=== PATIENT | male | born 1965 | race Caucasian/White ===

== ENCOUNTER 2016-11-02 14:00 | Outpatient (RCR) | payer OTHER, MEDICARE ==
[2016-08-18 14:42] VITALS: BP 124/82
[~2016-11-02 14:00] MED LIST: ABILIFY5 MG PO; ACIDOPHILUS PO; ACIDOPHILUS PRO1 CAP PO; ALBUTEROL SULFAT3 M3 IH; ALEVE220 M1 PO; ALL DAY ALLERGY10 M2 PO; ALPRAZOLAM0.25 MG PO; AMITIZA24 MC1 PO; AMLODIPINE BESYL5 MG PO; AMLOPIDINE PO; AMOXICILLIN 8751 TAB PO; ASPIRIN E.C. 8181 MG PO; ATIVAN 2MG/ML2 MG/ML IV; Ambien PO; BACLOFEN INT; BACTRIM DS TAB1 EACH PO; BELLADONNA/OPIU1 SU1 RC; BISOPROLOL FUMA1 TAB PO; CARDI-OMEGA1000 MG PO; CEPHALEXIN500 M1 PO; CIPRO 250MG TA250 MG PO; CLINDAMYCIN 300MG PO; COLACE 100100 MG/CAP PO; COLACE100 M1 PO; COREG 6.256.25 MG/TA PO; COREG12.5 MG PO; COUMADIN 3MG3 MG/TAB PO; COUMADIN 4MG4 MG/TAB PO; COUMADIN 5MG5 MG/TAB PO; COUMADIN PO; COUMADIN3 MG PO; COUMADIN5 M1 IV; COUMADIN5 MG PO; CYMBALTA60 MG PO; DELTASONE20 M1 PO; DEPAKOTE500 M1 PO; DHA PO; DIAZEPAM5 MG/5 ML PO; DULOXETINE60 MG PO; DURAGESIC50 MCG/PAT TD; ED PERCOCE6 TAB/BOTT PO; FE-TABS325 MG PO; FENTANYL TR25 MCG/HR TD; FERROUS SU325 MG/TAB PO; FERROUS SULFAT325 M1 PO; FLOMAX 0.40.4 MG/CAP PO; FLOMAX PO; FLONASE ALLERG9.9 ML NS; FUROSEMIDE PO; FUROSEMIDE20 MG PO; GABAPENTIN PO; GABAPENTIN100 MG PO; GAVISCON PO; IMITREX100 M1 PO; KEPPRA500 MG PO; KETOROLAC TROME10 MG PO; KLOR-CON 1010 MEQ PO; LASIX20 M1 PO; LEVAQUIN 5500 MG/TA1 PO; LIORESAL I500 MCG/ML IT; LORAZEPAM INT2 MG/ML PO; LORTAB 7.5/5001 TAB PO; METAMUCIL0.52 G1 PO; METAMUCIL3.4 GM/Do1 PO; MIRALAX17 GM PO; MUPIROCIN2% TP; MYLANTA PO; NEXIUM40 MG PO; NIACIN 250250 MG/CAP PO; NIACIN500 M3 PO; NIACIN500 M6 PO; NIACIN500 MG PO; NON FORMULARY PO; NORCO 325 MG-51 TA1 PO; NORCO 325 MG-7.1 TAB PO; NORVASC 5MG5 MG/TAB PO; NYSTATIN 1 ML1 ML; NYSTATIN CREAM15 GM TP; OMEGA-3 FISH1200 MG PO; ONDANSETRON4 M1 PO; PAMELOR75 M1 PO; PEPCID 20MG TAB20 MG PO; PERCOCET 325 MG1 TA2 PO; PERCOCET 325 MG1 TA4 PO; PERCOCET 7.5/321 TA1 PO; PHENERGAN 25 TA25 MG PO; POTASSIUM CHLO10 ME5 PO; PREDNISONE20 M1 PO; PRILOSEC 20MG20 MG PO; PROBIOTIC1 EAC1 PO; PROMETHAZINE HC25 M2 PO; RISPERDAL 1M1 MG/TAB PO; SENOKOT PO; ST. JOSEPH ASPI81 M1 PO; ST. JOSEPH81 M2 PO; TRILEPTAL600 MG PO; VALIUM 5MG T5 MG/TAB PO; VALIUM5 MG/ML REC; VIBRAMYCIN100 MG PO; VIIBRYD40 MG PO; VILAZODONE PO; VIMPAT100 MG PO; VIMPAT50 MG PO; XANAX 0.5MG0.5 MG PO; XANAX0.5 MG PO; ZANAFLEX4 M1 PO; ZANTAC 150MG T150 MG PO; ZIAC 5/6.25MG T1 TAB PO
[2017-01-18] MEDS ORDERED: ZIAC 2.5/6.25MG1 TAB PO (09:10)
[2017-01-18] MEDS ORDERED: VITAMIN D 1001000 IU PO (09:10)
[2017-01-18] MEDS ORDERED: MAGNESIUM400 MG (09:13)
[2017-01-18] MEDS ORDERED: PHENERGAN 25 TA25 MG PO (09:15)
[2017-01-18] MEDS ORDERED: RIBOFLAVIN400 MG PO (09:15)
[2017-01-31] MEDS ORDERED: LEVAQUIN 5500 MG/TA1 PO (07:33)
== END 2017-01-25 | disposition home or self-care (01) ==
LOC: PT
DX: I69.391 Dysphagia following cerebral infarction (principal)

== ENCOUNTER 2017-01-18 08:53 | Emergency (ER) | payer OTHER, MEDICARE ==
[2017-01-18] MEDS ORDERED: ZIAC 2.5/6.25MG1 TAB PO (09:10)
[2017-01-18] MEDS ORDERED: VITAMIN D 1001000 IU PO (09:10)
[2017-01-18] MEDS ORDERED: MAGNESIUM400 MG (09:13)
[2017-01-18] MEDS ORDERED: RIBOFLAVIN400 MG PO (09:15)
[2017-01-18] MEDS ORDERED: PHENERGAN 25 TA25 MG PO (09:15)
[2017-01-31] MEDS ORDERED: LEVAQUIN 5500 MG/TA1 PO (07:33)
== END 2017-01-18 10:38 | disposition home or self-care (01) ==
LOC: ED 08:53
DX: R31.9 Hematuria, unspecified (principal); N41.9 Inflammatory disease of prostate, unspecified; Z79.82 Long term (current) use of aspirin; Z79.01 Long term (current) use of anticoagulants; Z46.6 Encounter for fitting and adjustment of urinary device

== ENCOUNTER 2017-01-31 07:35 | Emergency (ER) | payer OTHER ==
[~2017-01-31 07:35] MED LIST changes: +MAGNESIUM400 MG; +RIBOFLAVIN400 MG PO; +VITAMIN D 1001000 IU PO; +ZIAC 2.5/6.25MG1 TAB PO
== END 2017-01-31 09:20 | disposition home or self-care (01) ==
LOC: ED 07:35
DX: I11.0 Hypertensive heart disease with heart failure (principal); Z95.2 Presence of prosthetic heart valve; Z79.01 Long term (current) use of anticoagulants

== ENCOUNTER 2017-02-12 08:59 | Emergency (ER) | payer MEDICARE, OTHER ==
[2017-02-12] MEDS ORDERED: METOLAZONE5 MG PO (10:08)
[2017-02-12] MEDS ORDERED: COUMADIN 3MG3 MG/TAB (10:11)
[2017-02-12 12:12] VITALS: BP 100/62
== END 2017-02-12 11:55 | disposition home or self-care (01) ==
LOC: ED 08:59
DX: S62.304A Unspecified fracture of fourth metacarpal bone, right hand, initial encounter for closed fracture (principal); S62.306A Unspecified fracture of fifth metacarpal bone, right hand, initial encounter for closed fracture; M81.0 Age-related osteoporosis without current pathological fracture; W19.XXXA Unspecified fall, initial encounter
CPT/HCPCS: J3010

== ENCOUNTER 2017-09-08 14:09 | Emergency (ER) | payer MEDICARE, OTHER ==
[~2017-09-08 14:09] MED LIST changes: -CARDI-OMEGA1000 MG PO; +EQL FISH OIL 11 EAC1 PO; +GABAPENTIN TAB600 MG PO; -GABAPENTIN100 MG PO; -MAGNESIUM400 MG; +MAGNESIUM400 MG PO; +METOLAZONE5 MG PO; +RIBOFLAVIN100 MG PO; -RIBOFLAVIN400 MG PO
[2017-09-08] MEDS ORDERED: OXYCODONE PO (14:43)
[2017-09-08] MEDS ORDERED: COUMADIN 4MG4 MG/TAB PO (14:50)
[2017-09-08 15:12] LABS: EOS # 0.1 (0.04-0.40); EOS % 1.8 % (0.0-4.0); HEMATOCRIT 41.2 % (42.0-52.0); HEMOGLOBIN 13.6 g/dL (13.5-18.0); LYMPH# 1.1 (1.50-4.00); MEAN CELL VOLUME 85 fl (78-100); MEAN CORPUSCULAR HEMOGLOBIN 28 pg (27-31); MEAN CORPUSCULAR HGB CONC 33 g/dL (33-37); MEAN PLATELET VOLUME 9.8 fl (7.4-10.4); MONO # 0.4 (0.20-0.80); NEU # 4.4 (1.40-6.50); PLATELET COUNT 195 K/mm3 (130-400); RED BLOOD COUNT 4.85 M/mm3 (4.20-5.60); RED CELL DISTRIBUTION WIDTH 14.2 % (11.5-14.5); WHITE BLOOD COUNT 6.1 K/mm3 (4.8-10.8)
[2017-09-08 15:20] LABS: ALBUMIN 4.3 g/dL (3.5-5.0); BUN/CREATININE RATIO 13.5 (6.0-26.0); CALCIUM 9.2 mg/dL (8.4-10.2); POTASSIUM 3.9 mmol/L (3.6-5.0); TOTAL BILIRUBIN 0.7 mg/dL (0.2-1.3); TOTAL PROTEIN 7.8 g/dL (6.3-8.2)
[2017-09-08 15:30] LABS: PROTHROMBIN TIME 27.3 SECONDS (9.0-12.0)
[2017-09-08 15:42] LABS: URINE APPEARANCE CLEAR; URINE BILIRUBIN NEGATIVE (NEGATIVE); URINE BLOOD NEGATIVE (NEGATIVE); URINE COLOR YELLOW; URINE GLUCOSE NEGATIVE (NEGATIVE); URINE KETONE NEGATIVE (NEGATIVE); URINE LEUKOCYTE ESTERASE NEGATIVE (NEGATIVE); URINE NITRATE NEGATIVE (NEGATIVE); URINE PROTEIN(semi-quant) NEGATIVE (NEGATIVE); URINE UROBILINOGEN NORMAL (NORMAL); URINE WBC 0-1 /hpf (0-3)
[2017-09-08 17:45] VITALS: BP 112/75
== END 2017-09-08 17:50 | disposition home or self-care (01) ==
LOC: ED 14:09
PROVIDERS: Family Medicine
DX: R10.31 Right lower quadrant pain (principal); I50.9 Heart failure, unspecified; I25.2 Old myocardial infarction; I69.851 Hemiplegia and hemiparesis following other cerebrovascular disease affecting right dominant side; G89.0 Central pain syndrome; K21.9 Gastro-esophageal reflux disease without esophagitis; Z95.2 Presence of prosthetic heart valve; R56.9 Unspecified convulsions; F39 Unspecified mood [affective] disorder; Z87.891 Personal history of nicotine dependence
CPT/HCPCS: A4344; A4354; J0595

== ENCOUNTER 2017-10-08 12:53 | Emergency (ER) | payer MEDICARE, OTHER ==
[~2017-10-08] VITALS: Wt 79.1 kg
[~2017-10-08 12:53] MED LIST changes: +OXYCODONE PO
[2017-10-08 13:49] LABS: URINE APPEARANCE CLEAR; URINE BILIRUBIN NEGATIVE (NEGATIVE); URINE BLOOD NEGATIVE (NEGATIVE); URINE COLOR YELLOW; URINE GLUCOSE NEGATIVE (NEGATIVE); URINE KETONE NEGATIVE (NEGATIVE); URINE LEUKOCYTE ESTERASE NEGATIVE (NEGATIVE); URINE NITRATE NEGATIVE (NEGATIVE); URINE PROTEIN(semi-quant) NEGATIVE (NEGATIVE); URINE UROBILINOGEN NORMAL (NORMAL)
[2017-10-08 14:50] VITALS: BP 122/75
== END 2017-10-08 14:36 | disposition home or self-care (01) ==
LOC: ED 12:53
PROVIDERS: Nurse Practitioner Primary Care
DX: N40.1 Benign prostatic hyperplasia with lower urinary tract symptoms (principal); R33.8 Other retention of urine; I25.2 Old myocardial infarction; I10 Essential (primary) hypertension; Z86.73 Personal history of transient ischemic attack (TIA), and cerebral infarction without residual deficits; G89.29 Other chronic pain; Z97.8 Presence of other specified devices; Z88.8 Allergy status to other drugs, medicaments and biological substances; Z95.2 Presence of prosthetic heart valve; Z79.01 Long term (current) use of anticoagulants; Z79.82 Long term (current) use of aspirin
CPT/HCPCS: A4358

== ENCOUNTER 2017-10-29 07:15 | Emergency (ER) | payer MEDICARE, OTHER ==
[~2017-10-29] VITALS: Wt 53.9 kg
[2017-10-29 08:00] LABS: EOS # 0.2 (0.04-0.40); EOS % 2.4 % (0.0-4.0); HEMATOCRIT 41.8 % (42.0-52.0); HEMOGLOBIN 13.8 g/dL (13.5-18.0); LYMPH# 1.6 (1.50-4.00); MEAN CELL VOLUME 85 fl (78-100); MEAN CORPUSCULAR HEMOGLOBIN 28 pg (27-31); MEAN CORPUSCULAR HGB CONC 33 g/dL (33-37); MEAN PLATELET VOLUME 9.4 fl (7.4-10.4); MONO # 0.7 (0.20-0.80); NEU # 4.9 (1.40-6.50); PLATELET COUNT 229 K/mm3 (130-400); RED BLOOD COUNT 4.94 M/mm3 (4.20-5.60); RED CELL DISTRIBUTION WIDTH 14.3 % (11.5-14.5); WHITE BLOOD COUNT 7.4 K/mm3 (4.8-10.8)
[2017-10-29 08:12] LABS: ALBUMIN 4.3 g/dL (3.5-5.0); BUN/CREATININE RATIO 15.8 (6.0-26.0); CALCIUM 8.8 mg/dL (8.4-10.2); TOTAL BILIRUBIN 0.7 mg/dL (0.2-1.3); TOTAL PROTEIN 7.8 g/dL (6.3-8.2)
[2017-10-29 11:08] LABS: PH-URINE 6.5 (5.0 - 8.0); URINE APPEARANCE CLEAR; URINE BILIRUBIN NEGATIVE (NEGATIVE); URINE BLOOD NEGATIVE (NEGATIVE); URINE COLOR YELLOW; URINE GLUCOSE NEGATIVE (NEGATIVE); URINE KETONE NEGATIVE (NEGATIVE); URINE LEUKOCYTE ESTERASE NEGATIVE (NEGATIVE); URINE NITRATE NEGATIVE (NEGATIVE); URINE PROTEIN(semi-quant) NEGATIVE (NEGATIVE); URINE UROBILINOGEN NORMAL (NORMAL); URINE WBC 0-1 /hpf (0-3)
[2017-10-29] MEDS ORDERED: DILAUDID2 M1 PO (11:23)
[2017-10-29 11:46] VITALS: BP 131/87
== END 2017-10-29 11:40 | disposition home or self-care (01) ==
LOC: ED 07:15
PROVIDERS: Nurse Practitioner Primary Care
DX: I69.951 Hemiplegia and hemiparesis following unspecified cerebrovascular disease affecting right dominant side (principal); G89.29 Other chronic pain; I25.2 Old myocardial infarction; I10 Essential (primary) hypertension; K21.9 Gastro-esophageal reflux disease without esophagitis; Z87.442 Personal history of urinary calculi; Z95.0 Presence of cardiac pacemaker; Z95.2 Presence of prosthetic heart valve; Z97.8 Presence of other specified devices; Z79.01 Long term (current) use of anticoagulants; Z79.82 Long term (current) use of aspirin; Z88.8 Allergy status to other drugs, medicaments and biological substances
CPT/HCPCS: A4354; J1170; J1885; J3010

== ENCOUNTER 2017-12-17 12:55 | Emergency (ER) | payer MEDICARE, OTHER ==
[~2017-12-17] VITALS: Wt 79.3 kg
[~2017-12-17 12:55] MED LIST changes: -COUMADIN 1MG1 MG/TAB PO; -FINASTERIDE5 M1 PO; -LIORESAL I500 MCG/ML; -POTASSIUM CHLO20 ME3 PO
[2017-12-17] MEDS ORDERED: NORCO 325 MG-51 TA1 PO (13:07)
[2017-12-17 13:34] LABS: EOS # 0.2 (0.04-0.40); EOS % 3.9 % (0.0-4.0); HEMATOCRIT 44.5 % (42.0-52.0); HEMOGLOBIN 14.3 g/dL (13.5-18.0); LYMPH# 1.2 (1.50-4.00); MEAN CELL VOLUME 84 fl (78-100); MEAN CORPUSCULAR HEMOGLOBIN 27 pg (27-31); MEAN CORPUSCULAR HGB CONC 32 g/dL (33-37); MEAN PLATELET VOLUME 9.4 fl (7.4-10.4); MONO # 0.6 (0.20-0.80); NEU # 3.3 (1.40-6.50); PLATELET COUNT 261 K/mm3 (130-400); RED BLOOD COUNT 5.32 M/mm3 (4.20-5.60); RED CELL DISTRIBUTION WIDTH 14.4 % (11.5-14.5); WHITE BLOOD COUNT 5.3 K/mm3 (4.8-10.8)
[2017-12-17 13:55] LABS: ALBUMIN 4.1 g/dL (3.5-5.0); BUN/CREATININE RATIO 9.4 (6.0-26.0); CALCIUM 9.1 mg/dL (8.4-10.2); TOTAL BILIRUBIN 0.4 mg/dL (0.2-1.3); TOTAL PROTEIN 7.6 g/dL (6.3-8.2)
[2017-12-17 14:11] LABS: POTASSIUM 2.8 mmol/L (3.6-5.0)
[2017-12-17 14:46] LABS: URINE APPEARANCE CLEAR; URINE BILIRUBIN NEGATIVE (NEGATIVE); URINE BLOOD NEGATIVE (NEGATIVE); URINE COLOR YELLOW; URINE GLUCOSE NEGATIVE (NEGATIVE); URINE KETONE NEGATIVE (NEGATIVE); URINE LEUKOCYTE ESTERASE NEGATIVE (NEGATIVE); URINE NITRATE NEGATIVE (NEGATIVE); URINE PROTEIN(semi-quant) NEGATIVE (NEGATIVE); URINE UROBILINOGEN NORMAL (NORMAL)
[2017-12-17 15:03] LABS: PROTHROMBIN TIME 34.6 SECONDS (9.0-12.0)
[2017-12-17] MEDS ORDERED: PERCOCET 325 MG1 TA2 PO (16:49)
[2017-12-17] MEDS ORDERED: POTASSIUM CHLO20 ME3 PO (16:49)
[2017-12-17 17:57] VITALS: BP 125/82
[2017-12-20] MEDS ORDERED: FINASTERIDE5 M1 PO (19:04)
[2017-12-20] MEDS ORDERED: LIORESAL I500 MCG/ML (19:07)
[2017-12-20] MEDS ORDERED: COUMADIN 1MG1 MG/TAB PO (19:12)
== END 2017-12-17 18:09 | disposition home or self-care (01) ==
LOC: ED 12:55
PROVIDERS: Physician Assistant
DX: E86.0 Dehydration (principal); E87.6 Hypokalemia; G43.909 Migraine, unspecified, not intractable, without status migrainosus; R79.1 Abnormal coagulation profile; Z79.01 Long term (current) use of anticoagulants; Z95.2 Presence of prosthetic heart valve; J45.909 Unspecified asthma, uncomplicated; Z95.0 Presence of cardiac pacemaker; Z87.891 Personal history of nicotine dependence; I51.9 Heart disease, unspecified; Z88.8 Allergy status to other drugs, medicaments and biological substances; Z79.82 Long term (current) use of aspirin; I69.351 Hemiplegia and hemiparesis following cerebral infarction affecting right dominant side
CPT/HCPCS: A4354; J1885; J2405; J3010; J7030

== ENCOUNTER → 2017-12-17 | Outpatient (CLI) | payer MEDICARE, OTHER ==
[~2017-12-17] MED LIST changes: +COUMADIN 1MG1 MG/TAB PO; +COUMADIN 2MG2 MG/TAB PO; +DILAUDID2 M1 PO; +FINASTERIDE5 M1 PO; +LIORESAL I500 MCG/ML; +PAMELOR25 M1 PO; -PAMELOR75 M1 PO; +POTASSIUM CHLO20 ME3 PO
[2017-12-17 17:57] VITALS: BP 125/82
[2017-12-17 20:55] LABS: BUN/CREATININE RATIO 10.1 (6.0-26.0); CALCIUM 8.2 mg/dL (8.4-10.2); POTASSIUM 3.1 mmol/L (3.6-5.0)
== END ==
LOC: LAB 20:30
PROVIDERS: Physician Assistant
DX: E87.6 Hypokalemia (principal)

== ENCOUNTER → 2017-12-20 | Outpatient (CLI) | payer MEDICARE, OTHER ==
[~2017-12-20] VITALS: Ht 165.1 cm; Wt 79.1 kg
[~2017-12-20] MED LIST changes: +COUMADIN 1MG1 MG/TAB PO; +FINASTERIDE5 M1 PO; +LIORESAL I500 MCG/ML; +POTASSIUM CHLO20 ME3 PO
[2017-12-20 18:15] VITALS: BP 125/80
[2017-12-20 19:24] VITALS: BP 113/68
[2017-12-20 20:27] VITALS: BP 104/62
[2017-12-20 21:00] VITALS: BP 113/62
== END | disposition home or self-care (01) ==
LOC: EDSTATUS 11:39 → AMSURD 18:07
DX: E86.0 Dehydration (principal)
CPT/HCPCS: J3475; J7030

== ENCOUNTER 2018-02-07 17:54 | Emergency (ER) | payer MEDICARE, OTHER ==
[~2018-02-07] VITALS: Wt 79.1 kg
[2018-02-07 19:15] LABS: EOS # 0.2 (0.04-0.40); EOS % 3.2 % (0.0-4.0); HEMATOCRIT 40.7 % (42.0-52.0); LYMPH# 1.3 (1.50-4.00); MEAN CELL VOLUME 84 fl (78-100); MEAN CORPUSCULAR HEMOGLOBIN 27 pg (27-31); MEAN CORPUSCULAR HGB CONC 32 g/dL (33-37); MEAN PLATELET VOLUME 9.6 fl (7.4-10.4); MONO # 0.5 (0.20-0.80); NEU # 3.6 (1.40-6.50); PLATELET COUNT 250 K/mm3 (130-400); RED BLOOD COUNT 4.84 M/mm3 (4.20-5.60); WHITE BLOOD COUNT 5.6 K/mm3 (4.8-10.8)
[2018-02-07 19:31] LABS: ALBUMIN 3.8 g/dL (3.5-5.0); CALCIUM 8.8 mg/dL (8.4-10.2); POTASSIUM 3.4 mmol/L (3.6-5.0); TOTAL BILIRUBIN 0.5 mg/dL (0.2-1.3); TOTAL PROTEIN 7.1 g/dL (6.3-8.2)
[2018-02-07 22:45] VITALS: BP 116/65
== END 2018-02-07 22:45 | disposition home or self-care (01) ==
LOC: ED 17:54
PROVIDERS: Nurse Practitioner Family
DX: G43.009 Migraine without aura, not intractable, without status migrainosus (principal); E86.0 Dehydration; G44.89 Other headache syndrome; E87.6 Hypokalemia; I10 Essential (primary) hypertension; R56.9 Unspecified convulsions; I69.361 Other paralytic syndrome following cerebral infarction affecting right dominant side; I69.398 Other sequelae of cerebral infarction; Z87.891 Personal history of nicotine dependence; Z95.0 Presence of cardiac pacemaker; Z95.2 Presence of prosthetic heart valve; Z97.8 Presence of other specified devices; Z79.01 Long term (current) use of anticoagulants; Z79.82 Long term (current) use of aspirin
CPT/HCPCS: J1200; J1885; J2300; J2405; J2550; J7030

== ENCOUNTER → 2018-06-27 | Outpatient (CLI) | payer MEDICARE, OTHER | LOC: LAB 09:31 | DX: R39.14 Feeling of incomplete bladder emptying (principal) ==

== ENCOUNTER 2018-07-31 14:40 | Emergency (ER) | payer MEDICARE, OTHER ==
[~2018-07-31] VITALS: Wt 78.8 kg
[2018-07-31] MEDS ORDERED: FIORINAL 50-321 EACH PO (15:13)
[2018-07-31] MEDS ORDERED: TOPAMAX25 MG PO (15:14)
[2018-07-31 16:20] LABS: EOS # 0.1 (0.04-0.40); EOS % 2.5 % (0.0-4.0); HEMATOCRIT 35.4 % (42.0-52.0); HEMOGLOBIN 11.5 g/dL (13.5-18.0); MEAN CELL VOLUME 82 fl (78-100); MEAN CORPUSCULAR HEMOGLOBIN 27 pg (27-31); MEAN CORPUSCULAR HGB CONC 33 g/dL (33-37); MONO # 0.4 (0.20-0.80); NEU # 3.7 (1.40-6.50); PLATELET COUNT 208 K/mm3 (130-400); RED BLOOD COUNT 4.33 M/mm3 (4.20-5.60); RED CELL DISTRIBUTION WIDTH 15.1 % (11.5-14.5); WHITE BLOOD COUNT 5.3 K/mm3 (4.8-10.8)
[2018-07-31 16:31] LABS: ALBUMIN 4.1 g/dL (3.5-5.0); CALCIUM 8.7 mg/dL (8.4-10.2); POTASSIUM 3.4 mmol/L (3.6-5.0); TOTAL BILIRUBIN 0.5 mg/dL (0.2-1.3); TOTAL PROTEIN 6.9 g/dL (6.3-8.2)
[2018-07-31 16:41] LABS: PH-URINE 5.5 (5.0 - 8.0); URINE APPEARANCE CLEAR; URINE BILIRUBIN NEGATIVE (NEGATIVE); URINE BLOOD NEGATIVE (NEGATIVE); URINE COLOR YELLOW; URINE GLUCOSE NEGATIVE (NEGATIVE); URINE KETONE NEGATIVE (NEGATIVE); URINE LEUKOCYTE ESTERASE NEGATIVE (NEGATIVE); URINE NITRATE NEGATIVE (NEGATIVE); URINE PROTEIN(semi-quant) NEGATIVE (NEGATIVE); URINE UROBILINOGEN NORMAL (NORMAL); URINE WBC 0-1 /hpf (0-3)
[2018-07-31 17:38] LABS: PROTHROMBIN TIME 20.7 SECONDS (9.0-12.0)
[2018-07-31 18:11] VITALS: BP 126/73
== END 2018-07-31 18:10 | disposition home or self-care (01) ==
LOC: ED 14:40
PROVIDERS: Nurse Practitioner Primary Care
DX: R55 Syncope and collapse (principal); T67.9XXA Effect of heat and light, unspecified, initial encounter; R51 Headache; G40.409 Other generalized epilepsy and epileptic syndromes, not intractable, without status epilepticus; I25.2 Old myocardial infarction; I10 Essential (primary) hypertension; Z95.0 Presence of cardiac pacemaker; Z95.5 Presence of coronary angioplasty implant and graft; Z79.82 Long term (current) use of aspirin; Z79.01 Long term (current) use of anticoagulants; Z79.899 Other long term (current) drug therapy; Z95.2 Presence of prosthetic heart valve; G81.91 Hemiplegia, unspecified affecting right dominant side; Z86.73 Personal history of transient ischemic attack (TIA), and cerebral infarction without residual deficits
CPT/HCPCS: J3010; J7040

== ENCOUNTER 2018-08-16 13:49 | Emergency (ER) | payer MEDICARE, OTHER ==
[~2018-08-16] VITALS: Wt 76.4 kg
[~2018-08-16 13:49] MED LIST changes: +FIORINAL 50-321 EACH PO; +TOPAMAX25 MG PO
[2018-08-16] MEDS ORDERED: ASTELIN137 MCG/AC NAS (14:33)
[2018-08-16] MEDS ORDERED: ACETAMINOPHEN-H1 TA2 PO (14:36)
[2018-08-16 14:40] LABS: EOS # 0.1 (0.04-0.40); HEMATOCRIT 39.3 % (42.0-52.0); HEMOGLOBIN 12.7 g/dL (13.5-18.0); MEAN CELL VOLUME 83 fl (78-100); MEAN CORPUSCULAR HEMOGLOBIN 27 pg (27-31); MEAN CORPUSCULAR HGB CONC 32 g/dL (33-37); MEAN PLATELET VOLUME 10.2 fl (7.4-10.4); MONO # 0.4 (0.20-0.80); PLATELET COUNT 228 K/mm3 (130-400); RED BLOOD COUNT 4.75 M/mm3 (4.20-5.60); RED CELL DISTRIBUTION WIDTH 15.2 % (11.5-14.5); WHITE BLOOD COUNT 5.5 K/mm3 (4.8-10.8)
[2018-08-16 14:48] LABS: ALBUMIN 4.3 g/dL (3.5-5.0); CALCIUM 8.7 mg/dL (8.4-10.2); POTASSIUM 3.8 mmol/L (3.6-5.0); TOTAL BILIRUBIN 0.5 mg/dL (0.2-1.3); TOTAL PROTEIN 7.4 g/dL (6.3-8.2)
[2018-08-16 15:10] LABS: PH-URINE 6.5 (5.0 - 8.0); URINE APPEARANCE CLOUDY; URINE BILIRUBIN NEGATIVE (NEGATIVE); URINE BLOOD NEGATIVE (NEGATIVE); URINE COLOR YELLOW; URINE GLUCOSE NEGATIVE (NEGATIVE); URINE KETONE NEGATIVE (NEGATIVE); URINE LEUKOCYTE ESTERASE NEGATIVE (NEGATIVE); URINE NITRATE NEGATIVE (NEGATIVE); URINE PROTEIN(semi-quant) TRACE mg/dL (NEGATIVE); URINE UROBILINOGEN NORMAL (NORMAL); URINE WBC 0-1 /hpf (0-3)
[2018-08-16] MEDS ORDERED: NIACIN500 M6 PO (15:39)
[2018-08-16] MEDS ORDERED: POTASSIUM CHLO480 ML PO (15:40)
[2018-08-16] MEDS ORDERED: TOPAMAX25 MG PO (15:42)
[2018-08-16 16:09] VITALS: BP 118/75
== END 2018-08-16 16:48 | disposition short-term general hospital (02) ==
LOC: ED 13:49
PROVIDERS: Nurse Practitioner Primary Care
DX: I63.89 Other cerebral infarction (principal); G46.0 Middle cerebral artery syndrome; R55 Syncope and collapse; I10 Essential (primary) hypertension; F99 Mental disorder, not otherwise specified; G43.909 Migraine, unspecified, not intractable, without status migrainosus; F41.8 Other specified anxiety disorders; Z79.01 Long term (current) use of anticoagulants
CPT/HCPCS: J1200; J2405; J3010

== ENCOUNTER 2018-08-23 13:47 | Inpatient (IN) | payer MEDICARE, OTHER ==
[~2018-08-23] VITALS: Ht 165.1 cm; Wt 75.2 kg
[~2018-08-23 13:47] MED LIST changes: +ACETAMINOPHEN-H1 TA2 PO; +ASTELIN137 MCG/AC NAS; +POTASSIUM CHLO480 ML PO
[2018-08-23] MEDS ORDERED: RIFAMPIN 3300 MG/CAP PO (19:41)
[2018-08-23] MEDS ORDERED: GENTAMICIN I40 MG/ML IV (19:43)
[2018-08-23] MEDS ORDERED: VANCOMYCIN1 GM/1001 IV (19:45)
[2018-08-23] MEDS ORDERED: MAGNESIUM400 MG PO (19:49)
[2018-08-23 20:23] VITALS: BP 160/84
[2018-08-24 06:14] VITALS: BP 164/68
[2018-08-24 07:16] VITALS: BP 164/68
[2018-08-24 18:46] VITALS: BP 181/106
[2018-08-25 06:03] VITALS: BP 151/74
[2018-08-25 08:37] LABS: BASO # 0.1 (0.02-0.10); EOS # 0.3 (0.04-0.40); HEMATOCRIT 38.4 % (42.0-52.0); HEMOGLOBIN 12.4 g/dL (13.5-18.0); LYMPH# 1.6 (1.50-4.00); MEAN CELL VOLUME 83 fl (78-100); MEAN CORPUSCULAR HEMOGLOBIN 27 pg (27-31); MEAN CORPUSCULAR HGB CONC 32 g/dL (33-37); MEAN PLATELET VOLUME 10.2 fl (7.4-10.4); MONO # 0.7 (0.20-0.80); NEU # 3.3 (1.40-6.50); PLATELET COUNT 258 K/mm3 (130-400); RED BLOOD COUNT 4.65 M/mm3 (4.20-5.60); RED CELL DISTRIBUTION WIDTH 15.3 % (11.5-14.5)
[2018-08-25 08:41] LABS: PROTHROMBIN TIME 26.4 SECONDS (9.0-12.0)
[2018-08-25 08:56] LABS: EOS % 5.4 % (0.0-4.0)
[2018-08-25 09:04] LABS: ALBUMIN 4.5 g/dL (3.5-5.0); POTASSIUM 3.3 mmol/L (3.6-5.0)
[2018-08-25 09:14] LABS: CALCIUM 9.2 mg/dL (8.4-10.2); TOTAL PROTEIN 7.8 g/dL (6.3-8.2)
[2018-08-25 18:46] VITALS: BP 160/64
[2018-08-26 06:18] VITALS: BP 121/66
[2018-08-26 18:41] VITALS: BP 158/90
[2018-08-27 06:27] VITALS: BP 142/68
[2018-08-27 08:31] LABS: CALCIUM 9.2 mg/dL (8.4-10.2)
[2018-08-27 18:01] VITALS: BP 169/100
[2018-08-28 06:24] VITALS: BP 105/62
[2018-08-28 18:26] VITALS: BP 127/83
[2018-08-29 06:40] VITALS: BP 118/75
[2018-08-29 18:31] VITALS: BP 130/74
[2018-08-30 06:15] VITALS: BP 111/66
[2018-08-30 07:14] LABS: PROTHROMBIN TIME 10.6 SECONDS (9.0-12.0)
[2018-08-30 07:28] LABS: CALCIUM 8.7 mg/dL (8.4-10.2); POTASSIUM 3.2 mmol/L (3.6-5.0)
[2018-08-30 18:52] VITALS: BP 122/74; BP 22/74
[2018-08-31 06:30] VITALS: BP 100/68
[2018-08-31 08:30] VITALS: BP 113/64
[2018-08-31 18:42] VITALS: BP 125/81
[2018-09-01 06:26] VITALS: BP 104/54
[2018-09-01 08:57] VITALS: BP 151/55
[2018-09-01 18:34] VITALS: BP 128/73
[2018-09-02 06:21] VITALS: BP 106/62
[2018-09-02 06:47] LABS: EOS # 0.2 (0.04-0.40); EOS % 3.8 % (0.0-4.0); HEMATOCRIT 33.3 % (42.0-52.0); HEMOGLOBIN 10.4 g/dL (13.5-18.0); LYMPH# 1.4 (1.50-4.00); MEAN CELL VOLUME 83 fl (78-100); MEAN CORPUSCULAR HEMOGLOBIN 26 pg (27-31); MEAN CORPUSCULAR HGB CONC 31 g/dL (33-37); MEAN PLATELET VOLUME 9.4 fl (7.4-10.4); MONO # 0.6 (0.20-0.80); NEU # 3.6 (1.40-6.50); PLATELET COUNT 244 K/mm3 (130-400); RED CELL DISTRIBUTION WIDTH 14.9 % (11.5-14.5); WHITE BLOOD COUNT 5.9 K/mm3 (4.8-10.8)
[2018-09-02 07:30] LABS: ALBUMIN 3.5 g/dL (3.5-5.0); CALCIUM 8.4 mg/dL (8.4-10.2); POTASSIUM 3.5 mmol/L (3.6-5.0); TOTAL BILIRUBIN 0.6 mg/dL (0.2-1.3); TOTAL PROTEIN 6.3 g/dL (6.3-8.2)
[2018-09-02 07:33] LABS: PROTHROMBIN TIME 10.3 SECONDS (9.0-12.0)
[2018-09-02 18:35] VITALS: BP 124/69
[2018-09-03 06:20] VITALS: BP 109/53
[2018-09-03] MEDS ORDERED: ENOXAPARIN80 MG/0.1 SQ (09:30)
[2018-09-03] MEDS ORDERED: COUMADIN 22.5 MG/TAB PO (09:31)
[2018-09-03] MEDS ORDERED: EFFER-K20 MEQ PO (09:32)
== END 2018-09-03 11:21 | disposition home health service (06) | DRG 289 ==
LOC: MED/SURG 13:47
PROVIDERS: Family Medicine; Internal Medicine; ADMIT Nurse Practitioner Family
DX: I33.9 Acute and subacute endocarditis, unspecified (principal); I69.951 Hemiplegia and hemiparesis following unspecified cerebrovascular disease affecting right dominant side; Z87.891 Personal history of nicotine dependence; Z95.2 Presence of prosthetic heart valve; I69.320 Aphasia following cerebral infarction; K21.9 Gastro-esophageal reflux disease without esophagitis; N18.9 Chronic kidney disease, unspecified; E78.5 Hyperlipidemia, unspecified; I48.2 Chronic atrial fibrillation; Z95.0 Presence of cardiac pacemaker
CPT/HCPCS: J1580; J1644; J1650; J3370; J7050

== ENCOUNTER → 2018-09-04 | Outpatient (CLI) | payer MEDICARE, OTHER ==
[2018-09-03 06:20] VITALS: BP 109/53
[~2018-09-04] MED LIST changes: +COUMADIN 22.5 MG/TAB PO; +EFFER-K20 MEQ PO; +ENOXAPARIN80 MG/0.1 SQ; +GENTAMICIN I40 MG/ML IV; +RIFAMPIN 3300 MG/CAP PO; +VANCOMYCIN1 GM/1001 IV
[2018-09-04 22:08] LABS: PROTHROMBIN TIME 13.1 SECONDS (9.0-12.0)
[2018-09-04 22:30] LABS: CALCIUM 9.6 mg/dL (8.4-10.2); POTASSIUM 4.3 mmol/L (3.6-5.0); TOTAL BILIRUBIN 0.6 mg/dL (0.2-1.3); TOTAL PROTEIN 6.7 g/dL (6.3-8.2)
== END ==
LOC: LAB 14:48
PROVIDERS: Family Medicine
DX: T82.6XXA Infection and inflammatory reaction due to cardiac valve prosthesis, initial encounter (principal); Z95.2 Presence of prosthetic heart valve; Z79.01 Long term (current) use of anticoagulants

== ENCOUNTER 2018-10-13 16:41 | Emergency (ER) | payer MEDICARE, OTHER ==
[~2018-10-13] VITALS: Wt 79.0 kg
[2018-10-13] MEDS ORDERED: COUMADIN 6MG6 MG/TAB PO (16:58)
[2018-10-13] MEDS ORDERED: POTASSIUM CHLO480 ML PO (16:59)
[2018-10-13 17:51] LABS: EOS # 0.1 (0.04-0.40); EOS % 2.5 % (0.0-4.0); HEMATOCRIT 32.2 % (42.0-52.0); HEMOGLOBIN 10.4 g/dL (13.5-18.0); LYMPH# 0.9 (1.50-4.00); MEAN CELL VOLUME 81 fl (78-100); MEAN CORPUSCULAR HEMOGLOBIN 26 pg (27-31); MEAN CORPUSCULAR HGB CONC 32 g/dL (33-37); MONO # 0.4 (0.20-0.80); NEU # 3.8 (1.40-6.50); PLATELET COUNT 205 K/mm3 (130-400); RED BLOOD COUNT 3.97 M/mm3 (4.20-5.60); RED CELL DISTRIBUTION WIDTH 14.7 % (11.5-14.5); WHITE BLOOD COUNT 5.3 K/mm3 (4.8-10.8)
[2018-10-13 18:03] LABS: CALCIUM 9.1 mg/dL (8.4-10.2); POTASSIUM 3.5 mmol/L (3.6-5.0)
[2018-10-13 18:09] LABS: PROTHROMBIN TIME 14.3 SECONDS (9.0-12.0)
[2018-10-13 21:50] VITALS: BP 127/49
== END 2018-10-13 21:50 | disposition home or self-care (01) ==
LOC: ED 16:41
PROVIDERS: Family Medicine
DX: R41.82 Altered mental status, unspecified (principal); S00.83XA Contusion of other part of head, initial encounter; W19.XXXA Unspecified fall, initial encounter; Y92.009 Unspecified place in unspecified non-institutional (private) residence as the place of occurrence of the external cause; Z79.01 Long term (current) use of anticoagulants; Z95.2 Presence of prosthetic heart valve; G40.909 Epilepsy, unspecified, not intractable, without status epilepticus; F44.5 Conversion disorder with seizures or convulsions; Z86.79 Personal history of other diseases of the circulatory system; I69.951 Hemiplegia and hemiparesis following unspecified cerebrovascular disease affecting right dominant side; R40.2412 Glasgow coma scale score 13-15, at arrival to emergency department; Z79.899 Other long term (current) drug therapy; Z79.82 Long term (current) use of aspirin

== ENCOUNTER 2019-04-16 17:57 | Emergency (ER) | payer MEDICARE, OTHER ==
[~2019-04-16] VITALS: Wt 74.0 kg
[~2019-04-16 17:57] MED LIST changes: +COUMADIN 6MG6 MG/TAB PO; -FLOMAX PO; +FLOMAX0.4 MG PO
[2019-04-16 19:08] LABS: EOS # 0.2 (0.04-0.40); EOS % 2.2 % (0.0-4.0); HEMATOCRIT 40.6 % (42.0-52.0); HEMOGLOBIN 12.8 g/dL (13.5-18.0); LYMPH# 1.6 (1.50-4.00); MEAN CELL VOLUME 80 fl (78-100); MEAN CORPUSCULAR HEMOGLOBIN 25 pg (27-31); MEAN CORPUSCULAR HGB CONC 32 g/dL (33-37); MEAN PLATELET VOLUME 9.9 fl (7.4-10.4); MONO # 0.6 (0.20-0.80); NEU # 6.2 (1.40-6.50); PLATELET COUNT 204 K/mm3 (130-400); RED BLOOD COUNT 5.09 M/mm3 (4.20-5.60); RED CELL DISTRIBUTION WIDTH 15.8 % (11.5-14.5); WHITE BLOOD COUNT 8.7 K/mm3 (4.8-10.8)
[2019-04-16 19:13] LABS: ALBUMIN 4.1 g/dL (3.5-5.0); POTASSIUM 3.5 mmol/L (3.5-5.1)
[2019-04-16 19:14] LABS: CALCIUM 9.5 mg/dL (8.3-10.5)
[2019-04-16 19:16] LABS: TOTAL PROTEIN 7.9 g/dL (6.4-8.3)
[2019-04-16 19:17] LABS: TOTAL BILIRUBIN 0.3 mg/dL (0.2-1.2)
[2019-04-16 19:24] LABS: PARTIAL THROMBOPLASTIN TIME 40.4 SECONDS (21.0-32.0); PROTHROMBIN TIME 28.4 SECONDS (9.0-12.0)
[2019-04-16 19:53] LABS: URINE APPEARANCE HAZY; URINE BILIRUBIN NEGATIVE (NEGATIVE); URINE BLOOD NEGATIVE (NEGATIVE); URINE COLOR YELLOW; URINE GLUCOSE NEGATIVE (NEGATIVE); URINE KETONE NEGATIVE (NEGATIVE); URINE LEUKOCYTE ESTERASE NEGATIVE (NEGATIVE); URINE NITRATE NEGATIVE (NEGATIVE); URINE PROTEIN(semi-quant) NEGATIVE (NEGATIVE); URINE UROBILINOGEN NORMAL (NORMAL); URINE WBC 0-1 /hpf (0-3)
[2019-04-16 20:01] LABS: CKMB ISOENZYME 2.9 ng/mL (0.0-3.5)
[2019-04-16] MEDS ORDERED: WARFARIN SODIU2.5 MG PO (20:37)
[2019-04-16 21:38] VITALS: BP 136/75
== END 2019-04-16 21:38 | disposition short-term general hospital (02) ==
LOC: ED 17:57
PROVIDERS: Physician Assistant
DX: R41.82 Altered mental status, unspecified (principal); R56.9 Unspecified convulsions; I63.9 Cerebral infarction, unspecified; N19 Unspecified kidney failure; I11.0 Hypertensive heart disease with heart failure; I50.9 Heart failure, unspecified; Z95.0 Presence of cardiac pacemaker; Z95.2 Presence of prosthetic heart valve; Z79.01 Long term (current) use of anticoagulants; Z86.79 Personal history of other diseases of the circulatory system; Z79.82 Long term (current) use of aspirin
CPT/HCPCS: J3010; J7030

== ENCOUNTER 2019-07-07 19:50 | Emergency (ER) | payer MEDICARE, OTHER ==
[~2019-07-07 19:50] MED LIST changes: +KEPPRA 500MG500 MG PO; +WARFARIN SODIU2.5 MG PO; +WARFARIN SODIUM5 MG PO
[2019-07-07] MEDS ORDERED: PHARMASSURE MA500 MG PO (20:03)
[2019-07-07] MEDS ORDERED: EMGALITY120 MG/1 M SQ (20:04)
[2019-07-07 20:31] LABS: EOS # 0.2 (0.04-0.40); EOS % 3.1 % (0.0-4.0); HEMATOCRIT 37.7 % (42.0-52.0); HEMOGLOBIN 11.8 g/dL (13.5-18.0); LYMPH# 1.4 (1.50-4.00); MEAN CELL VOLUME 80 fl (78-100); MEAN CORPUSCULAR HEMOGLOBIN 25 pg (27-31); MEAN CORPUSCULAR HGB CONC 31 g/dL (33-37); MEAN PLATELET VOLUME 9.9 fl (7.4-10.4); MONO # 0.5 (0.20-0.80); NEU # 3.1 (1.40-6.50); PLATELET COUNT 212 K/mm3 (130-400); RED BLOOD COUNT 4.72 M/mm3 (4.20-5.60); RED CELL DISTRIBUTION WIDTH 15.7 % (11.5-14.5); WHITE BLOOD COUNT 5.2 K/mm3 (4.8-10.8)
[2019-07-07 20:41] LABS: ALBUMIN 4.3 g/dL (3.5-5.0); POTASSIUM 3.5 mmol/L (3.5-5.1)
[2019-07-07 20:43] LABS: TOTAL PROTEIN 7.5 g/dL (6.4-8.3)
[2019-07-07 20:45] LABS: TOTAL BILIRUBIN 0.3 mg/dL (0.2-1.2)
[2019-07-08 00:25] LABS: URINE APPEARANCE HAZY; URINE BILIRUBIN NEGATIVE (NEGATIVE); URINE BLOOD NEGATIVE (NEGATIVE); URINE COLOR YELLOW; URINE GLUCOSE NEGATIVE (NEGATIVE); URINE KETONE NEGATIVE (NEGATIVE); URINE LEUKOCYTE ESTERASE NEGATIVE (NEGATIVE); URINE NITRATE NEGATIVE (NEGATIVE); URINE PROTEIN(semi-quant) NEGATIVE (NEGATIVE); URINE UROBILINOGEN NORMAL (NORMAL); URINE WBC 0-1 /hpf (0-3)
[2019-07-08 00:26] LABS: URINE MUCUS PRESENT (NOT PRESENT)
[2019-07-08 00:40] VITALS: BP 131/85
== END 2019-07-08 00:48 | disposition home or self-care (01) ==
LOC: ED 19:50
PROVIDERS: Nurse Practitioner
DX: R11.2 Nausea with vomiting, unspecified (principal); R19.7 Diarrhea, unspecified; R10.9 Unspecified abdominal pain; I11.0 Hypertensive heart disease with heart failure; I50.9 Heart failure, unspecified; I25.2 Old myocardial infarction; K21.9 Gastro-esophageal reflux disease without esophagitis; F41.9 Anxiety disorder, unspecified; F32.9 Major depressive disorder, single episode, unspecified; Z86.73 Personal history of transient ischemic attack (TIA), and cerebral infarction without residual deficits; Z95.2 Presence of prosthetic heart valve; Z95.0 Presence of cardiac pacemaker; Z87.891 Personal history of nicotine dependence; Z79.82 Long term (current) use of aspirin; Z79.01 Long term (current) use of anticoagulants
CPT/HCPCS: J2270; J2550; J7030

== ENCOUNTER 2019-08-06 19:40 | Observation (INO) | payer MEDICARE, OTHER ==
[~2019-08-06] VITALS: Ht 165.1 cm; Wt 69.7 kg
[~2019-08-06 19:40] MED LIST changes: +EMGALITY120 MG/1 M SQ; +PHARMASSURE MA500 MG PO
[2019-08-06 20:55] LABS: EOS # 0.2 (0.04-0.40); EOS % 2.2 % (0.0-4.0); HEMATOCRIT 37.5 % (42.0-52.0); HEMOGLOBIN 11.7 g/dL (13.5-18.0); LYMPH# 1.6 (1.50-4.00); MEAN CELL VOLUME 78 fl (78-100); MEAN CORPUSCULAR HEMOGLOBIN 24 pg (27-31); MEAN CORPUSCULAR HGB CONC 31 g/dL (33-37); MEAN PLATELET VOLUME 10.1 fl (7.4-10.4); MONO # 0.6 (0.20-0.80); NEU # 4.4 (1.40-6.50); PLATELET COUNT 232 K/mm3 (130-400); RED BLOOD COUNT 4.79 M/mm3 (4.20-5.60); RED CELL DISTRIBUTION WIDTH 15.5 % (11.5-14.5); WHITE BLOOD COUNT 6.8 K/mm3 (4.8-10.8)
[2019-08-06 21:05] LABS: PROTHROMBIN TIME 23.9 SECONDS (9.0-12.0)
[2019-08-06 21:14] LABS: ALBUMIN 4.2 g/dL (3.5-5.0)
[2019-08-06 21:15] LABS: CALCIUM 9.1 mg/dL (8.3-10.5)
[2019-08-06 21:16] LABS: TOTAL PROTEIN 7.4 g/dL (6.4-8.3)
[2019-08-06 21:18] LABS: TOTAL BILIRUBIN 0.3 mg/dL (0.2-1.2)
[2019-08-06 21:34] LABS: PH-URINE 6.5 (5.0 - 8.0); URINE APPEARANCE HAZY; URINE BILIRUBIN NEGATIVE (NEGATIVE); URINE BLOOD TRACE (NEGATIVE); URINE COLOR YELLOW; URINE GLUCOSE NEGATIVE (NEGATIVE); URINE KETONE NEGATIVE (NEGATIVE); URINE LEUKOCYTE ESTERASE NEGATIVE (NEGATIVE); URINE NITRATE NEGATIVE (NEGATIVE); URINE PROTEIN(semi-quant) NEGATIVE (NEGATIVE); URINE UROBILINOGEN NORMAL (NORMAL); URINE WBC 0-1 /hpf (0-3)
[2019-08-06] MEDS ORDERED: BISOPROLOL FUMA1 TAB PO (23:40)
[2019-08-06] MEDS ORDERED: MAGNESIUM400 MG PO (23:44)
[2019-08-07] VITALS (7 sets, daily range): BP systolic 102–128; BP diastolic 50–74
[2019-08-07 10:00] LABS: POTASSIUM 3.5 mmol/L (3.5-5.1)
[2019-08-07 10:01] LABS: CALCIUM 8.1 mg/dL (8.3-10.5)
[2019-08-07 16:44] LABS: POTASSIUM 3.7 mmol/L (3.5-5.1)
== END 2019-08-07 18:39 | disposition home or self-care (01) ==
LOC: ED 19:40 → MED/SURG 23:21
PROVIDERS: Nurse Practitioner Family; ADMIT Physician Assistant
DX: R55 Syncope and collapse (principal); E86.0 Dehydration; E87.6 Hypokalemia; I69.951 Hemiplegia and hemiparesis following unspecified cerebrovascular disease affecting right dominant side; N28.9 Disorder of kidney and ureter, unspecified; I38 Endocarditis, valve unspecified; Z95.2 Presence of prosthetic heart valve; Z79.01 Long term (current) use of anticoagulants; Z95.0 Presence of cardiac pacemaker; Z97.8 Presence of other specified devices; I50.9 Heart failure, unspecified; Z23 Encounter for immunization; Z86.69 Personal history of other diseases of the nervous system and sense organs; Z79.899 Other long term (current) drug therapy
CPT/HCPCS: G0378; J3480

== ENCOUNTER → 2019-08-11 | Outpatient (CLI) | payer MEDICARE, OTHER ==
[2019-08-07 18:23] VITALS: BP 109/62
[2019-08-11 13:28] LABS: POTASSIUM 3.6 mmol/L (3.5-5.1)
[2019-08-11 13:29] LABS: CALCIUM 8.7 mg/dL (8.3-10.5)
== END ==
LOC: LAB 12:58
PROVIDERS: Nurse Practitioner Family
DX: N28.9 Disorder of kidney and ureter, unspecified (principal); E87.6 Hypokalemia

== ENCOUNTER 2019-08-15 19:47 | Observation (INO) | payer MEDICARE, OTHER ==
[~2019-08-15] VITALS: Ht 165.1 cm; Wt 76.3 kg
[2019-08-15 20:33] LABS: EOS # 0.2 (0.04-0.40); HEMATOCRIT 35.7 % (42.0-52.0); HEMOGLOBIN 11.2 g/dL (13.5-18.0); LYMPH# 1.5 (1.50-4.00); MEAN CELL VOLUME 80 fl (78-100); MEAN CORPUSCULAR HEMOGLOBIN 25 pg (27-31); MEAN CORPUSCULAR HGB CONC 31 g/dL (33-37); MEAN PLATELET VOLUME 9.7 fl (7.4-10.4); MONO # 0.4 (0.20-0.80); NEU # 3.2 (1.40-6.50); PLATELET COUNT 233 K/mm3 (130-400); RED BLOOD COUNT 4.49 M/mm3 (4.20-5.60); RED CELL DISTRIBUTION WIDTH 16.8 % (11.5-14.5); WHITE BLOOD COUNT 5.3 K/mm3 (4.8-10.8)
[2019-08-15 20:41] LABS: ALBUMIN 4.3 g/dL (3.5-5.0); POTASSIUM 3.6 mmol/L (3.5-5.1)
[2019-08-15 20:42] LABS: CALCIUM 9.2 mg/dL (8.3-10.5)
[2019-08-15 20:44] LABS: TOTAL PROTEIN 7.7 g/dL (6.4-8.3)
[2019-08-15 20:45] LABS: TOTAL BILIRUBIN 0.2 mg/dL (0.2-1.2)
[2019-08-15 22:11] LABS: URINE APPEARANCE HAZY; URINE COLOR YELLOW
[2019-08-15 22:12] LABS: URINE BILIRUBIN NEGATIVE (NEGATIVE); URINE BLOOD NEGATIVE (NEGATIVE); URINE GLUCOSE NEGATIVE (NEGATIVE); URINE KETONE NEGATIVE (NEGATIVE); URINE LEUKOCYTE ESTERASE TRACE (NEGATIVE); URINE MUCUS PRESENT (NOT PRESENT); URINE NITRATE NEGATIVE (NEGATIVE); URINE PROTEIN(semi-quant) NEGATIVE (NEGATIVE); URINE UROBILINOGEN NORMAL (NORMAL)
[2019-08-15 23:23] VITALS: BP 132/77
[2019-08-15 23:25] VITALS: BP 132/77
[2019-08-15 23:35] LABS: PROTHROMBIN TIME 12.1 SECONDS (9.0-12.0)
[2019-08-16 03:14] VITALS: BP 131/64
[2019-08-16 06:18] VITALS: BP 136/74
[2019-08-16 11:20] VITALS: BP 121/72
[2019-08-16] MEDS ORDERED: MACROBID 100 M100 MG PO (12:29)
[2019-08-16 15:00] VITALS: BP 125/75
== END 2019-08-16 13:49 | disposition home or self-care (01) ==
LOC: ED 19:47 → MED/SURG 22:47
PROVIDERS: ADMIT Nurse Practitioner Primary Care
DX: R82.81 Pyuria (principal); D68.8 Other specified coagulation defects; I11.0 Hypertensive heart disease with heart failure; I50.9 Heart failure, unspecified; I25.2 Old myocardial infarction; I38 Endocarditis, valve unspecified; Z87.820 Personal history of traumatic brain injury; Z87.442 Personal history of urinary calculi; Z79.01 Long term (current) use of anticoagulants; Z95.2 Presence of prosthetic heart valve; Z95.0 Presence of cardiac pacemaker; Z97.8 Presence of other specified devices; Z79.899 Other long term (current) drug therapy; Z79.82 Long term (current) use of aspirin; Z88.8 Allergy status to other drugs, medicaments and biological substances; Z87.891 Personal history of nicotine dependence; R56.9 Unspecified convulsions
CPT/HCPCS: G0378; J3010; J7030

== ENCOUNTER 2019-08-28 20:32 | Emergency (ER) | payer MEDICARE, OTHER ==
[~2019-08-28] VITALS: Ht 165.1 cm; Wt 73.8 kg
[~2019-08-28 20:32] MED LIST changes: +MACROBID 100 M100 MG PO
[2019-08-28 21:51] LABS: BASO # 0.1 (0.02-0.10); EOS # 0.2 (0.04-0.40); EOS % 2.7 % (0.0-4.0); HEMATOCRIT 37.5 % (42.0-52.0); HEMOGLOBIN 11.8 g/dL (13.5-18.0); LYMPH# 1.2 (1.50-4.00); MEAN CELL VOLUME 79 fl (78-100); MEAN CORPUSCULAR HEMOGLOBIN 25 pg (27-31); MEAN CORPUSCULAR HGB CONC 32 g/dL (33-37); MEAN PLATELET VOLUME 9.5 fl (7.4-10.4); MONO # 0.5 (0.20-0.80); NEU # 4.7 (1.40-6.50); PLATELET COUNT 270 K/mm3 (130-400); RED BLOOD COUNT 4.76 M/mm3 (4.20-5.60); RED CELL DISTRIBUTION WIDTH 16.1 % (11.5-14.5); WHITE BLOOD COUNT 6.6 K/mm3 (4.8-10.8)
[2019-08-28 22:03] LABS: ALBUMIN 4.3 g/dL (3.5-5.0)
[2019-08-28 22:04] LABS: POTASSIUM 4.1 mmol/L (3.5-5.1); SODIUM 140 mmol/L (136-145)
[2019-08-28 22:05] LABS: CALCIUM 9.1 mg/dL (8.3-10.5)
[2019-08-28 22:06] LABS: GLUCOSE 104 mg/dL (75-110); TOTAL PROTEIN 7.8 g/dL (6.4-8.3)
[2019-08-28 22:07] LABS: CARBON DIOXIDE 22 mmol/L (22-29)
[2019-08-28 22:08] LABS: TOTAL BILIRUBIN 0.4 mg/dL (0.2-1.2)
[2019-08-28 22:11] LABS: AST-SGOT 20 U/L (5-34)
[2019-08-28 22:13] LABS: ALT/SGPT 23 U/L (0-55)
[2019-08-28 22:14] LABS: PARTIAL THROMBOPLASTIN TIME 28.4 SECONDS (21.0-32.0); PROTHROMBIN TIME 10.4 SECONDS (9.0-12.0)
[2019-08-28 22:19] LABS: CKMB ISOENZYME 0.8 ng/mL (0.0-3.5)
[2019-08-28 22:30] LABS: TROPONIN-I < 0.03 ng/mL (<0.030)
[2019-08-28 22:57] LABS: ERYTHROCYTE SEDIMENTATION RATE 10 mm/hr (0-20)
[2019-08-28 23:28] LABS: URINE APPEARANCE CLOUDY; URINE BILIRUBIN NEGATIVE (NEGATIVE); URINE BLOOD NEGATIVE (NEGATIVE); URINE COLOR YELLOW; URINE GLUCOSE NEGATIVE (NEGATIVE); URINE KETONE NEGATIVE (NEGATIVE); URINE LEUKOCYTE ESTERASE NEGATIVE (NEGATIVE); URINE NITRATE NEGATIVE (NEGATIVE); URINE PROTEIN(semi-quant) NEGATIVE (NEGATIVE); URINE UROBILINOGEN NORMAL (NORMAL)
[2019-08-28 23:37] LABS: URINE WBC 0-1 /hpf (0-3)
[2019-08-29 01:30] LABS: MAGNESIUM 2.03 mg/dL (1.60-2.60)
[2019-08-29 01:49] VITALS: BP 161/79
== END 2019-08-29 01:49 | disposition home or self-care (01) ==
LOC: ED 20:32
PROVIDERS: Nurse Practitioner Family
DX: F98.9 Unspecified behavioral and emotional disorders with onset usually occurring in childhood and adolescence (principal); R51 Headache; I11.0 Hypertensive heart disease with heart failure; I50.9 Heart failure, unspecified; I25.2 Old myocardial infarction; K21.9 Gastro-esophageal reflux disease without esophagitis; Z87.442 Personal history of urinary calculi; Z95.0 Presence of cardiac pacemaker; Z86.73 Personal history of transient ischemic attack (TIA), and cerebral infarction without residual deficits; Z95.2 Presence of prosthetic heart valve; Z79.01 Long term (current) use of anticoagulants; Z87.891 Personal history of nicotine dependence; Z79.82 Long term (current) use of aspirin
CPT/HCPCS: J1650; J1885; J2360; J2405; J3010; J7030

== ENCOUNTER 2019-12-08 09:23 | Observation (INO) | payer MEDICARE, OTHER ==
[~2019-12-08] VITALS: Ht 165.1 cm; Wt 71.5 kg
[2019-12-08 10:06] LABS: EOS # 0.2 (0.04-0.40); EOS % 3.9 % (0.0-4.0); HEMATOCRIT 37.5 % (42.0-52.0); HEMOGLOBIN 11.2 g/dL (13.5-18.0); MEAN CELL VOLUME 80 fl (78-100); MEAN CORPUSCULAR HEMOGLOBIN 24 pg (27-31); MEAN CORPUSCULAR HGB CONC 30 g/dL (33-37); MEAN PLATELET VOLUME 10.2 fl (7.4-10.4); MONO # 0.5 (0.20-0.80); PLATELET COUNT 180 K/mm3 (130-400); RED BLOOD COUNT 4.68 M/mm3 (4.20-5.60); RED CELL DISTRIBUTION WIDTH 16.2 % (11.5-14.5); WHITE BLOOD COUNT 4.6 K/mm3 (4.8-10.8)
[2019-12-08 10:13] LABS: ALBUMIN 4.2 g/dL (3.5-5.0); POTASSIUM 3.7 mmol/L (3.5-5.1)
[2019-12-08 10:15] LABS: CALCIUM 8.3 mg/dL (8.3-10.5)
[2019-12-08 10:16] LABS: TOTAL PROTEIN 7.3 g/dL (6.4-8.3)
[2019-12-08 10:18] LABS: TOTAL BILIRUBIN 0.4 mg/dL (0.2-1.2)
[2019-12-08 11:49] LABS: PROTHROMBIN TIME 10.6 SECONDS (9.0-12.0)
[2019-12-08 13:24] VITALS: BP 160/86
[2019-12-08 13:37] LABS: URINE APPEARANCE CLEAR; URINE BILIRUBIN NEGATIVE (NEGATIVE); URINE BLOOD NEGATIVE (NEGATIVE); URINE COLOR YELLOW; URINE GLUCOSE NEGATIVE (NEGATIVE); URINE KETONE NEGATIVE (NEGATIVE); URINE LEUKOCYTE ESTERASE NEGATIVE (NEGATIVE); URINE MUCUS PRESENT (NOT PRESENT); URINE NITRATE NEGATIVE (NEGATIVE); URINE PROTEIN(semi-quant) TRACE mg/dL (NEGATIVE); URINE UROBILINOGEN NORMAL (NORMAL); URINE WBC 0-1 /hpf (0-3)
[2019-12-08 14:23] VITALS: BP 150/80
--- NOTE | 2019-12-08 17:51 | NUR ---
This RN attempts to call Rocio, pt's , in order to inquire about the status of the pt's home medications. Rocio does not answer.
--- NOTE | 2019-12-08 18:07 | NUR ---
Pt's , Rocio, is at bedside. The pt has vomited once and is c/o a headache. Rocio brings pt's home medications at this time.
[2019-12-08 18:48] VITALS: BP 123/72
--- NOTE | 2019-12-08 19:40 | NUR ---
Report received from Gloria KIRKLAND. Resting supine in bed with at bedside. IVF infusing NS at 83 ML/HR. Site patent to Sandra AC. States still having nausea and pain to head 07/08. Had Nawaf at 1830. states "he feels hot". Temp checked noted to be afebrile. Assessment completed. Morphine 4 MG given SIVP. Sipping on Sprite at bedside.
[2019-12-08 22:00] VITALS: BP 124/69
--- NOTE | 2019-12-08 23:42 | NUR ---
Remains awake. States has H/A 9/10 and nausea. Has drank 2 soda's and requests another. No emesis noted. [place] 2 tabs and Zofran IV administered at this time. IV fluids continue at 83 ML/HR.
--- NOTE | 2019-12-09 00:53 | NUR ---
Remains awake. States no relief from [place].
[2019-12-09 01:49] VITALS: BP 114/58
--- NOTE | 2019-12-09 05:45 | NUR ---
Awakened for vital signs. States slept 2 hours last night. Requests analgesic for pain 07/08. [place] 2 tabs given. Denies further wants or needs.
[2019-12-09 06:15] VITALS: BP 118/68
--- NOTE | 2019-12-09 07:15 | NUR ---
Report to Shannon KIRKLAND.
--- NOTE | 2019-12-09 08:28 | NUR ---
Per Sandra Cruz APRN stated to stop IV fluids this a.m. as patient appears to be doing better. Encouraged hydration. Patient eating and drinking. Stopped IV fluids at 0821 with total fluid 191ml ifused.
[2019-12-09 10:20] VITALS: BP 136/73
[2019-12-09 14:16] VITALS: BP 133/77
--- NOTE | 2019-12-09 18:10 | NUR ---
Spouse at bedside with patient. Reviewed plan of care and events of the day thus far. Patient reports he is feeling nauseated after attempting to eat some salad. Spouse requested a bland diet. Applesauce given with some crackers per request. zofran given IV. Patient does well drinking sprite, but denies feeling much better than when he came in. Reviewed viral nature of illness and expected course of illness and goals with care.Patient and spouse receptive. Deny further needs at this time.
[2019-12-09 18:51] VITALS: BP 134/80
--- NOTE | 2019-12-09 20:45 | NUR ---
Rests in bed. A/O x4. Rates pain to Head /. [place] given with HS medications, taken whole without diffculty. INT intact to L AC. Assessment completed. No complaints or signs of nausea. Bed alarm on. Call light in reach. Remains on Droplet precautions.
[2019-12-09 21:44] VITALS: BP 118/68
[2019-12-10 02:00] VITALS: BP 144/71
--- NOTE | 2019-12-10 02:15 | NUR ---
Sleeping when COMMUNITY ENGAGEMENT MANAGER in to obtain vital signs. Has not requested analgesic since HS. No complaints of nausea.
--- NOTE | 2019-12-10 04:00 | NUR ---
Awakens and calls for analgesic. Pain 08/07 generalized. T 99.7, [place] 2 tabs taken at this time. Drinking Sprite at bedside.
[2019-12-10 06:06] VITALS: BP 132/70
[2019-12-10 06:42] LABS: PROTHROMBIN TIME 21.7 SECONDS (9.0-12.0)
--- NOTE | 2019-12-10 07:05 | NUR ---
Report to Rosanna KIRKLAND.
--- NOTE | 2019-12-10 07:10 | NUR ---
REPORT RECEIVED FROM JUAN MIGUEL GILMORE.
--- NOTE | 2019-12-10 08:05 | NUR ---
DRY HEAVES THIS MORNING WHEN PRIVATE PILOT WOKE HIM FOR MORNING CARES. STILL REPORTING SOME NAUSEA WHILE TAKING A BITE OF SAO TOMEAN TOAST. BODY ACHES RATED 10/10. NO COUGH NOTED. ABD SLIGHTLY DISTENDED; PATIENT FEELS BLOATED. NO EDEMA TO LE. CALL LIGHT IN REACH. REMAINS IN ISOLATION PRECAUTIONS.
[2019-12-10 10:30] VITALS: BP 125/72
--- NOTE | 2019-12-10 10:30 | NUR ---
RESTING IN BED WITH EYES CLOSED. DIFFICULT TO AROUSE; PRN PHENERGAN WAS GIVEN EARLIER. RESP EVEN AND UNLABORED. SKIN COLOR WNL. APPEARS IN NO DISTRESS. CALL LIGHT IN REACH, WELL PHONE. BED ALARM IN PLACE.
--- NOTE | 2019-12-10 11:30 | NUR ---
RESISTANT TO CHANGE OF POSITION. DOES NOT WANT TO GO TO [facility] FOR LUNCH.
--- NOTE | 2019-12-10 12:13 | NUR ---
AWAKE AND ALERT. LUNCH TRAY DELIVERED.
--- NOTE | 2019-12-10 12:17 | NUR ---
Pt continues to have slight nausea but is able to eat and drink, has had no further vomiting and had a normal BM yesterday. He will be discharged to home to the care of his , who is his caregiver, and reports that he is back to baseline and they have no further needs. Pt will continue on Tamiflu x 3 more days and has f/u appt w/ PCP.
--- NOTE | 2019-12-10 14:11 | NUR ---
SHOWERED WITH MINIMAL STAFF ASSIST. DRESSES IN CLEAN CLOTHES. POSITION TO [facility]. DISCHARGE TODAY WHEN AVAILABLE; ETA 1700.
[2019-12-10 14:23] VITALS: BP 108/63
--- NOTE | 2019-12-10 17:08 | NUR ---
ORDER FOR TAMIFLU 75MG PO X1 DOSE NOW RECEIVED FROM SARAH B[place]. DOSE GIVEN PER ORDER. PATIENT TO [facility] AND HAS ALREADY FILLED TAMIFLU RX.
--- NOTE | 2019-12-10 17:55 | NUR ---
DC INSTRUCTIONS REVIEWED WITH PATIENT AND . LIST OF MEDS STILL DUE TODAY PROVIDED TO . TO POV VIA W/C. MASK WORN BY PATIENT TO POV.
== END 2019-12-10 18:09 | disposition home or self-care (01) ==
LOC: ED 09:23 → MED/SURG 11:22
PROVIDERS: Nurse Practitioner Family; ADMIT Nurse Practitioner Primary Care
DX: J10.2 Influenza due to other identified influenza virus with gastrointestinal manifestations (principal); I69.359 Hemiplegia and hemiparesis following cerebral infarction affecting unspecified side; Z79.01 Long term (current) use of anticoagulants; Z79.899 Other long term (current) drug therapy; I38 Endocarditis, valve unspecified; I25.2 Old myocardial infarction; I10 Essential (primary) hypertension; Z95.2 Presence of prosthetic heart valve; Z79.82 Long term (current) use of aspirin; Z87.891 Personal history of nicotine dependence; Z88.8 Allergy status to other drugs, medicaments and biological substances; Z95.0 Presence of cardiac pacemaker; Z97.8 Presence of other specified devices; R56.9 Unspecified convulsions
CPT/HCPCS: G0378; J1650; J2270; J2405; J2550; J7030

== ENCOUNTER 2019-12-19 08:52 | Emergency (ER) | payer MEDICARE, OTHER ==
[~2019-12-19] VITALS: Wt 72.9 kg
[~2019-12-19 08:52] MED LIST changes: -ALL DAY ALLERGY10 M2 PO; +ALLERGY RELIEF10 M2 PO; -VITAMIN D 1001000 IU PO; +VITAMIN D32000 I1 PO
[2019-12-19 09:58] LABS: EOS # 0.2 (0.04-0.40); HEMATOCRIT 37.7 % (42.0-52.0); HEMOGLOBIN 11.2 g/dL (13.5-18.0); LYMPH# 1.3 (1.50-4.00); MEAN CELL VOLUME 80 fl (78-100); MEAN CORPUSCULAR HEMOGLOBIN 24 pg (27-31); MEAN CORPUSCULAR HGB CONC 30 g/dL (33-37); MEAN PLATELET VOLUME 9.7 fl (7.4-10.4); MONO # 0.3 (0.20-0.80); NEU # 3.1 (1.40-6.50); PLATELET COUNT 288 K/mm3 (130-400); RED BLOOD COUNT 4.73 M/mm3 (4.20-5.60); RED CELL DISTRIBUTION WIDTH 15.6 % (11.5-14.5)
[2019-12-19 10:10] LABS: ALBUMIN 4.1 g/dL (3.5-5.0)
[2019-12-19 10:11] LABS: POTASSIUM 3.9 mmol/L (3.5-5.1)
[2019-12-19 10:12] LABS: CALCIUM 8.4 mg/dL (8.3-10.5)
[2019-12-19 10:15] LABS: TOTAL BILIRUBIN 0.4 mg/dL (0.2-1.2)
[2019-12-19 11:40] LABS: PROTHROMBIN TIME 20.6 SECONDS (9.0-12.0)
[2019-12-19 12:00] VITALS: BP 148/76
[2019-12-23] MEDS ORDERED: CEFUROXIME AXE500 MG PO (11:02)
[2019-12-23] MEDS ORDERED: DOXYCYCLINE MO100 M3 PO (11:05)
== END 2019-12-19 12:02 | disposition other institution (70) ==
LOC: ED 08:52
PROVIDERS: Nurse Practitioner Primary Care
DX: J18.9 Pneumonia, unspecified organism (principal); E86.0 Dehydration; I11.0 Hypertensive heart disease with heart failure; I50.9 Heart failure, unspecified; I48.91 Unspecified atrial fibrillation; I25.2 Old myocardial infarction; I25.10 Atherosclerotic heart disease of native coronary artery without angina pectoris; K21.9 Gastro-esophageal reflux disease without esophagitis; F41.9 Anxiety disorder, unspecified; F32.9 Major depressive disorder, single episode, unspecified; Z79.01 Long term (current) use of anticoagulants; Z79.82 Long term (current) use of aspirin; Z86.73 Personal history of transient ischemic attack (TIA), and cerebral infarction without residual deficits; Z95.0 Presence of cardiac pacemaker
CPT/HCPCS: J2405; J7030

== ENCOUNTER → 2019-12-25 | Day surgery (SDC) | payer MEDICARE, OTHER ==
[2019-12-23 18:21] VITALS: BP 127/71
[~2019-12-25] MED LIST changes: +CEFUROXIME AXE500 MG PO; +DOXYCYCLINE MO100 M3 PO
== END | disposition home or self-care (01) ==
LOC: MSO 09:45
DX: K22.2 Esophageal obstruction (principal); T18.2XXA Foreign body in stomach, initial encounter; K21.9 Gastro-esophageal reflux disease without esophagitis; Z98.890 Other specified postprocedural states; Z95.2 Presence of prosthetic heart valve; R56.9 Unspecified convulsions; Z95.0 Presence of cardiac pacemaker
CPT/HCPCS: 00731; A4649; C1726; J2704; J7120

== ENCOUNTER → 2020-01-12 | Outpatient (CLI) | payer MEDICARE, OTHER ==
[2019-12-23 18:21] VITALS: BP 127/71
[2020-01-12 15:01] LABS: EOS # 0.2 (0.04-0.40); EOS % 4.1 % (0.0-4.0); HEMATOCRIT 37.9 % (42.0-52.0); HEMOGLOBIN 11.2 g/dL (13.5-18.0); LYMPH# 1.4 (1.50-4.00); MEAN CELL VOLUME 82 fl (78-100); MEAN CORPUSCULAR HEMOGLOBIN 24 pg (27-31); MEAN CORPUSCULAR HGB CONC 30 g/dL (33-37); MEAN PLATELET VOLUME 9.9 fl (7.4-10.4); MONO # 0.4 (0.20-0.80); NEU # 3.1 (1.40-6.50); PLATELET COUNT 223 K/mm3 (130-400); RED BLOOD COUNT 4.63 M/mm3 (4.20-5.60); RED CELL DISTRIBUTION WIDTH 17.1 % (11.5-14.5); WHITE BLOOD COUNT 5.1 K/mm3 (4.8-10.8)
[2020-01-12 15:06] LABS: PROTHROMBIN TIME 21.6 SECONDS (9.0-12.0)
[2020-01-12 15:08] LABS: ALBUMIN 4.1 g/dL (3.5-5.0); POTASSIUM 4.1 mmol/L (3.5-5.1)
[2020-01-12 15:09] LABS: CALCIUM 8.9 mg/dL (8.3-10.5)
[2020-01-12 15:12] LABS: TOTAL BILIRUBIN 0.2 mg/dL (0.2-1.2)
[2020-01-12 15:17] LABS: MAGNESIUM 2.32 mg/dL (1.60-2.60)
[2020-01-12 16:43] LABS: ERYTHROCYTE SEDIMENTATION RATE 7 mm/hr (0-20)
[2020-01-13 04:25] LABS: LEVETIRACETAM (KEPPRA) 13 ug/mL (5-45)
== END ==
LOC: LAB 14:31
PROVIDERS: Internal Medicine
DX: I10 Essential (primary) hypertension (principal); I63.9 Cerebral infarction, unspecified; D51.9 Vitamin B12 deficiency anemia, unspecified; K90.9 Intestinal malabsorption, unspecified; R56.9 Unspecified convulsions

== ENCOUNTER → 2020-03-12 | Outpatient (CLI) | payer MEDICARE, OTHER ==
[2020-03-11 19:46] VITALS: BP 141/80
[2020-03-12 16:57] LABS: CALCIUM 9.2 mg/dL (8.3-10.5)
[2020-03-12 16:58] LABS: TOTAL PROTEIN 6.6 g/dL (6.4-8.3)
[2020-03-12 17:00] LABS: TOTAL BILIRUBIN 0.3 mg/dL (0.2-1.2)
[2020-03-12 17:04] LABS: MAGNESIUM 2.13 mg/dL (1.60-2.60)
== END ==
LOC: LAB 16:03
PROVIDERS: Internal Medicine
DX: I10 Essential (primary) hypertension (principal); I63.9 Cerebral infarction, unspecified; R56.9 Unspecified convulsions

== ENCOUNTER 2020-03-13 10:00 | Outpatient (RCR) | payer MEDICARE, OTHER ==
[2020-03-09 19:14] VITALS: BP 121/59
[2020-03-09 20:35] VITALS: BP 145/70
[2020-03-10 18:04] VITALS: BP 119/75
[2020-03-10 19:12] VITALS: BP 133/80
[2020-03-11 18:20] VITALS: BP 120/68
[2020-03-11 18:30] VITALS: BP 120/68
[2020-03-11 19:46] VITALS: BP 141/80
[2020-03-12 16:27] VITALS: BP 117/71
[~2020-03-13] VITALS: Ht 165.1 cm; Wt 72.7 kg
[2020-03-13 10:15] VITALS: BP 118/73
== END 2020-03-13 10:55 | disposition home or self-care (01) ==
LOC: AMSURD 10:00
DX: E61.1 Iron deficiency (principal); K90.9 Intestinal malabsorption, unspecified
CPT/HCPCS: J1756; J7050

== ENCOUNTER → 2020-03-29 | Outpatient (CLI) | payer MEDICARE, OTHER ==
[2020-03-13 10:15] VITALS: BP 118/73
[2020-03-29 17:25] LABS: ALBUMIN 4.1 g/dL (3.5-5.0)
[2020-03-29 17:27] LABS: CALCIUM 8.6 mg/dL (8.3-10.5)
[2020-03-29 17:28] LABS: TOTAL PROTEIN 6.9 g/dL (6.4-8.3)
[2020-03-29 17:30] LABS: TOTAL BILIRUBIN 0.3 mg/dL (0.2-1.2)
[2020-03-29 17:34] LABS: MAGNESIUM 2.13 mg/dL (1.60-2.60)
[2020-03-29 17:50] LABS: EOS # 0.1 (0.04-0.40); EOS % 2.6 % (0.0-4.0); HEMATOCRIT 43.1 % (42.0-52.0); HEMOGLOBIN 13.7 g/dL (13.5-18.0); LYMPH# 1.2 (1.50-4.00); MEAN CELL VOLUME 89 fl (78-100); MEAN CORPUSCULAR HEMOGLOBIN 28 pg (27-31); MEAN CORPUSCULAR HGB CONC 32 g/dL (33-37); MONO # 0.3 (0.20-0.80); NEU # 2.6 (1.40-6.50); PLATELET COUNT 174 K/mm3 (130-400); RED BLOOD COUNT 4.82 M/mm3 (4.20-5.60); WHITE BLOOD COUNT 4.2 K/mm3 (4.8-10.8)
== END ==
LOC: LAB 16:41
PROVIDERS: Internal Medicine
DX: D64.9 Anemia, unspecified (principal); I10 Essential (primary) hypertension; K90.9 Intestinal malabsorption, unspecified; R56.9 Unspecified convulsions; I63.9 Cerebral infarction, unspecified; E53.8 Deficiency of other specified B group vitamins

== ENCOUNTER → 2020-08-05 | Outpatient (CLI) | payer MEDICARE, OTHER | LOC: LAB 09:20 | DX: R39.12 Poor urinary stream (principal) ==

== ENCOUNTER 2020-11-03 06:48 | Emergency (ER) | payer MEDICARE, OTHER ==
[~2020-11-03] VITALS: Wt 75.7 kg
[~2020-11-03 06:48] MED LIST changes: -VITAMIN D32000 I1 PO; +VITAMIN D350 MC1 PO
[2020-11-03 07:28] LABS: EOS # 0.2 (0.04-0.40); EOS % 4.1 % (0.0-4.0); HEMATOCRIT 49.4 % (42.0-52.0); HEMOGLOBIN 16.1 g/dL (13.5-18.0); MEAN CELL VOLUME 92 fl (78-100); MEAN CORPUSCULAR HEMOGLOBIN 30 pg (27-31); MEAN CORPUSCULAR HGB CONC 33 g/dL (33-37); MEAN PLATELET VOLUME 9.7 fl (7.4-10.4); MONO # 0.3 (0.20-0.80); NEU # 3.4 (1.40-6.50); PLATELET COUNT 182 K/mm3 (130-400); RED BLOOD COUNT 5.37 M/mm3 (4.20-5.60); RED CELL DISTRIBUTION WIDTH 13.2 % (11.5-14.5); WHITE BLOOD COUNT 4.9 K/mm3 (4.8-10.8)
[2020-11-03] MEDS ORDERED: REPATHA SU140 MG/1 M SQ (07:35)
[2020-11-03] MEDS ORDERED: WARFARIN SODIUM5 MG PO (07:36)
[2020-11-03] MEDS ORDERED: LIORESAL I2000 MCG/1 (07:37)
[2020-11-03] MEDS ORDERED: FERROUS GL325 MG/TA1 PO (07:39)
[2020-11-03 07:41] LABS: ALBUMIN 4.2 g/dL (3.5-5.0); POTASSIUM 3.9 mmol/L (3.5-5.1)
[2020-11-03 07:42] LABS: CALCIUM 8.9 mg/dL (8.3-10.5)
[2020-11-03] MEDS ORDERED: VITAMIN B-121000 MC2 PO (07:43)
[2020-11-03 07:44] LABS: TOTAL PROTEIN 7.1 g/dL (6.4-8.3)
[2020-11-03] MEDS ORDERED: VITAMIN C500 MG PO (07:44)
[2020-11-03 07:45] LABS: TOTAL BILIRUBIN 0.9 mg/dL (0.2-1.2)
[2020-11-03 10:15] LABS: URINE WBC 0 /hpf (0-3)
[2020-11-03 10:35] LABS: URINE APPEARANCE CLEAR; URINE BILIRUBIN NEGATIVE (NEGATIVE); URINE BLOOD NEGATIVE (NEGATIVE); URINE COLOR YELLOW; URINE GLUCOSE NEGATIVE (NEGATIVE); URINE KETONE NEGATIVE (NEGATIVE); URINE LEUKOCYTE ESTERASE NEGATIVE (NEGATIVE); URINE NITRATE NEGATIVE (NEGATIVE); URINE PROTEIN(semi-quant) TRACE mg/dL (NEGATIVE); URINE UROBILINOGEN NORMAL (NORMAL)
[2020-11-03] MEDS ORDERED: ZOFRAN ODT4 MG PO (10:52)
[2020-11-03 11:52] VITALS: BP 131/84
== END 2020-11-03 11:53 | disposition home or self-care (01) ==
LOC: ED 06:48
PROVIDERS: Physician Assistant
DX: R11.0 Nausea (principal); E86.0 Dehydration; K59.00 Constipation, unspecified; R51.9 Headache, unspecified; F41.9 Anxiety disorder, unspecified; F32.9 Major depressive disorder, single episode, unspecified; K21.9 Gastro-esophageal reflux disease without esophagitis; I11.0 Hypertensive heart disease with heart failure; I50.9 Heart failure, unspecified; I25.2 Old myocardial infarction; I48.91 Unspecified atrial fibrillation; Z20.822 Contact with and (suspected) exposure to COVID-19; Z86.73 Personal history of transient ischemic attack (TIA), and cerebral infarction without residual deficits; Z95.4 Presence of other heart-valve replacement; Z95.0 Presence of cardiac pacemaker; Z79.82 Long term (current) use of aspirin; Z79.01 Long term (current) use of anticoagulants
CPT/HCPCS: J2405; J2550; J3010; J7030; Q9967

== ENCOUNTER → 2021-02-14 | Outpatient (CLI) | payer MEDICARE, OTHER ==
[~2021-02-14] MED LIST changes: +CLARITIN10 M1 PO; +FERROUS GL325 MG/TA1 PO; +LIORESAL I2000 MCG/1; +NATURAL IRON65 MG PO; +NIACIN500 M5 PO; +REPATHA SU140 MG/1 M SQ; +VITAMIN B-121000 MC2 PO; +VITAMIN C500 MG PO; +WARFARIN SOD5 MG PO; +ZOFRAN ODT4 MG PO; +[UNRECOGNIZED DRUG - REMARK] PO
[2021-02-14 09:11] LABS: EOS # 0.3 (0.04-0.40); EOS % 4.7 % (0.0-4.0); HEMATOCRIT 44.8 % (42.0-52.0); HEMOGLOBIN 14.8 g/dL (13.5-18.0); LYMPH# 1.2 (1.50-4.00); MEAN CELL VOLUME 90 fl (78-100); MEAN CORPUSCULAR HEMOGLOBIN 30 pg (27-31); MEAN CORPUSCULAR HGB CONC 33 g/dL (33-37); MEAN PLATELET VOLUME 9.4 fl (7.4-10.4); MONO # 0.5 (0.20-0.80); PLATELET COUNT 242 K/mm3 (130-400); RED BLOOD COUNT 4.97 M/mm3 (4.20-5.60); RED CELL DISTRIBUTION WIDTH 13.7 % (11.5-14.5)
[2021-02-14 09:18] LABS: POTASSIUM 3.9 mmol/L (3.5-5.1)
[2021-02-14 09:19] LABS: ALBUMIN 4.2 g/dL (3.5-5.0)
[2021-02-14 09:20] LABS: CALCIUM 8.8 mg/dL (8.3-10.5)
[2021-02-14 09:23] LABS: TOTAL BILIRUBIN 0.6 mg/dL (0.2-1.2)
[2021-02-14 09:28] LABS: MAGNESIUM 2.01 mg/dL (1.60-2.60)
[2021-02-14 23:11] LABS: TESTOSTERONE 825 ng/dL (221-716)
[2021-02-15 06:10] LABS: VITAMIN D 1,25 DIHYDROXY 87.6 pg/mL (())
== END ==
LOC: LAB 08:46
PROVIDERS: Internal Medicine
DX: K90.9 Intestinal malabsorption, unspecified (principal); I10 Essential (primary) hypertension; N52.9 Male erectile dysfunction, unspecified

== ENCOUNTER → 2021-03-10 | Outpatient (CLI) | payer MEDICARE, OTHER ==
[2021-03-10 17:58] LABS: BASO # 0.04 (0.02-0.10); EOS # 0.17 (0.04-0.40); EOS % 3.2 % (0.0-4.0); HEMATOCRIT 42.8 % (42.0-52.0); HEMOGLOBIN 13.9 g/dL (13.5-18.0); LYMPH# 1.36 (1.50-4.00); MEAN CELL VOLUME 92 fl (78-100); MEAN CORPUSCULAR HEMOGLOBIN 30 pg (27-31); MEAN CORPUSCULAR HGB CONC 33 g/dL (33-37); MEAN PLATELET VOLUME 9.6 fl (7.4-10.4); MONO # 0.39 (0.20-0.80); NEU # 3.29 (1.40-6.50); PLATELET COUNT 198 K/mm3 (130-400); RED BLOOD COUNT 4.63 M/mm3 (4.20-5.60); RED CELL DISTRIBUTION WIDTH 13.2 % (11.5-14.5); WHITE BLOOD COUNT 5.3 K/mm3 (4.8-10.8)
[2021-03-10 19:06] LABS: ERYTHROCYTE SEDIMENTATION RATE 3 mm/hr (0-20)
== END ==
LOC: LAB 17:39
PROVIDERS: Internal Medicine
DX: I33.0 Acute and subacute infective endocarditis (principal)

== ENCOUNTER → 2021-04-01 | Outpatient (CLI) | payer MEDICARE, OTHER ==
[2021-04-01 18:37] LABS: BASO # 0.04 (0.02-0.10); EOS # 0.23 (0.04-0.40); EOS % 4.4 % (0.0-4.0); HEMATOCRIT 42.4 % (42.0-52.0); HEMOGLOBIN 13.9 g/dL (13.5-18.0); LYMPH# 1.29 (1.50-4.00); MEAN CELL VOLUME 92 fl (78-100); MEAN CORPUSCULAR HEMOGLOBIN 30 pg (27-31); MEAN CORPUSCULAR HGB CONC 33 g/dL (33-37); MEAN PLATELET VOLUME 9.8 fl (7.4-10.4); MONO # 0.36 (0.20-0.80); NEU # 3.24 (1.40-6.50); PLATELET COUNT 175 K/mm3 (130-400); RED BLOOD COUNT 4.62 M/mm3 (4.20-5.60); RED CELL DISTRIBUTION WIDTH 13.2 % (11.5-14.5); WHITE BLOOD COUNT 5.2 K/mm3 (4.8-10.8)
[2021-04-01 18:48] LABS: POTASSIUM 4.1 mmol/L (3.5-5.1)
[2021-04-01 18:49] LABS: CALCIUM 8.4 mg/dL (8.3-10.5)
[2021-04-01 19:46] LABS: ERYTHROCYTE SEDIMENTATION RATE 10 mm/hr (0-20)
== END ==
LOC: LAB 18:05
DX: T82.6XXD Infection and inflammatory reaction due to cardiac valve prosthesis, subsequent encounter (principal); I38 Endocarditis, valve unspecified

== ENCOUNTER 2021-05-20 19:49 | Emergency (ER) | payer MEDICARE, OTHER ==
[~2021-05-20 19:49] MED LIST changes: -CLARITIN10 M1 PO; -NATURAL IRON65 MG PO; -NIACIN500 M5 PO; -WARFARIN SOD5 MG PO; -[UNRECOGNIZED DRUG - REMARK] PO
[2021-05-20] MEDS ORDERED: NATURAL IRON65 MG PO (22:53)
[2021-05-20] MEDS ORDERED: CLARITIN10 M1 PO (22:54)
[2021-05-20] MEDS ORDERED: NIACIN500 M5 PO (22:56)
[2021-05-20] MEDS ORDERED: FLOMAX0.4 MG PO (22:58)
[2021-05-20] MEDS ORDERED: RISPERDAL 1M1 MG/TAB PO (22:58)
[2021-05-20] MEDS ORDERED: [UNRECOGNIZED DRUG - REMARK] PO (22:59)
[2021-05-20] MEDS ORDERED: WARFARIN SOD5 MG PO (23:02)
[2021-05-20] MEDS ORDERED: WARFARIN SODIU2.5 MG PO (23:02)
[2021-05-20 23:16] VITALS: BP 126/80
== END 2021-05-20 23:17 | disposition home or self-care (01) ==
LOC: ED 19:49
DX: R33.9 Retention of urine, unspecified (principal); I25.10 Atherosclerotic heart disease of native coronary artery without angina pectoris; I10 Essential (primary) hypertension; I48.91 Unspecified atrial fibrillation; I25.2 Old myocardial infarction; Z96.0 Presence of urogenital implants; Z79.82 Long term (current) use of aspirin; Z79.899 Other long term (current) drug therapy

== ENCOUNTER → 2021-06-28 | Outpatient (CLI) | payer MEDICARE, OTHER ==
[~2021-06-28] MED LIST changes: +CLARITIN10 M1 PO; +NATURAL IRON65 MG PO; +NIACIN500 M5 PO; +WARFARIN SOD5 MG PO; +[UNRECOGNIZED DRUG - REMARK] PO
== END ==
LOC: LAB 20:40
DX: U07.1 COVID-19 (principal)

== ENCOUNTER → 2021-08-16 | Outpatient (CLI) | payer MEDICARE, OTHER ==
[2021-08-16 09:06] LABS: BASO # 0.04 K/mm3 (0.02-0.10); EOS # 0.19 K/mm3 (0.04-0.40); EOS % 3.8 % (0.0-4.0); HEMATOCRIT 43.9 % (42.0-52.0); HEMOGLOBIN 14.4 g/dL (13.5-18.0); LYMPH# 1.34 K/mm3 (1.50-4.00); MEAN CELL VOLUME 93 fl (78-100); MEAN CORPUSCULAR HEMOGLOBIN 31 pg (27-31); MEAN CORPUSCULAR HGB CONC 33 g/dL (33-37); MEAN PLATELET VOLUME 9.7 fl (7.4-10.4); MONO # 0.45 K/mm3 (0.20-0.80); NEU # 2.92 K/mm3 (1.40-6.50); PLATELET COUNT 211 K/mm3 (130-400); RED BLOOD COUNT 4.72 M/mm3 (4.20-5.60)
[2021-08-16 09:14] LABS: ALBUMIN 4.2 g/dL (3.5-5.0); POTASSIUM 4.2 mmol/L (3.5-5.1)
[2021-08-16 09:15] LABS: CALCIUM 9.3 mg/dL (8.3-10.5)
[2021-08-16 09:16] LABS: TOTAL PROTEIN 7.2 g/dL (6.4-8.3)
[2021-08-16 09:18] LABS: TOTAL BILIRUBIN 0.6 mg/dL (0.2-1.2)
== END ==
LOC: LAB 08:47
PROVIDERS: Internal Medicine
DX: M25.512 Pain in left shoulder (principal)

== ENCOUNTER 2022-09-18 20:09 | Emergency (ER) | payer MEDICARE, OTHER ==
[~2022-09-18] VITALS: Wt 82.6 kg
[~2022-09-18 20:09] MED LIST changes: +BACLOFEN; +EMGALITY120 MG/1 M; +FENOFIBRATE145 MG PO; +TOPROL XL 25MG25 MG PO
[2022-09-18] MEDS ORDERED: NYSTATIN15 GM TP (21:55)
[2022-09-18 22:30] VITALS: BP 120/52
== END 2022-09-18 22:30 | disposition home or self-care (01) ==
LOC: ED 20:09
DX: B37.49 Other urogenital candidiasis (principal); Z28.310 Unvaccinated for COVID-19

== ENCOUNTER → 2023-08-30 | Outpatient (CLI) | payer MEDICARE, OTHER ==
[~2023-08-30] MED LIST changes: +NYSTATIN15 GM TP
== END ==
LOC: RAD 14:08
DX: Z01.89 Encounter for other specified special examinations (principal)

== ENCOUNTER 2024-03-16 17:37 | Emergency (ER) | payer MEDICARE, OTHER ==
[~2024-03-16 17:37] MED LIST changes: +cefTRIAXone 1 G in Water For Injection,Sterile 10 ML IV ONE
[2024-04-18 20:30] LABS: HEMATOCRIT 42.9 % (42.0-52.0); HEMOGLOBIN 13.5 g/dL (13.5-18.0); MEAN PLATELET VOLUME 9.7 fl (7.4-10.4); RED BLOOD COUNT 4.56 M/mm3 (4.20-5.60); RED CELL DISTRIBUTION WIDTH 13.7 % (11.5-14.5); WHITE BLOOD COUNT 9.2 K/mm3 (4.8-10.8)
[2024-04-18 20:32] LABS: ALBUMIN 4.3 g/dL (3.5-5.0); CALCIUM 9.9 mg/dL (8.3-10.5); TOTAL BILIRUBIN 0.6 mg/dL (0.2-1.2); TOTAL PROTEIN 7.3 g/dL (6.4-8.3)
== END 2024-03-16 21:34 | disposition home or self-care (01) ==
LOC: ED 17:37
PROVIDERS: Physician Assistant
DX: L03.116 Cellulitis of left lower limb (principal); N18.9 Chronic kidney disease, unspecified
CPT/HCPCS: J0696

== ENCOUNTER 2024-03-20 20:43 | Emergency (ER) | payer MEDICARE, OTHER ==
[~2024-03-20 20:43] MED LIST changes: +Amoxicillin 250 MG CAP PO ONE; +Ondansetron 4 MG/2 ML VIAL IV ONE; -cefTRIAXone 1 G in Water For Injection,Sterile 10 ML IV ONE
[2024-04-25 05:12] LABS: ALBUMIN 4.3 g/dL (3.5-5.0); CALCIUM 9.8 mg/dL (8.3-10.5); TOTAL BILIRUBIN 0.5 mg/dL (0.2-1.2); TOTAL PROTEIN 7.6 g/dL (6.4-8.3)
[2024-04-25 05:14] LABS: BASO # 0.02 K/mm3 (0.02-0.10); EOS # 0.25 K/mm3 (0.04-0.40); EOS % 3.7 % (0.0-4.0); HEMATOCRIT 42.9 % (42.0-52.0); HEMOGLOBIN 13.5 g/dL (13.5-18.0); LYMPH# 1.26 K/mm3 (1.50-4.00); MEAN CELL VOLUME 93 fl (78-100); MEAN CORPUSCULAR HEMOGLOBIN 29 pg (27-31); MEAN CORPUSCULAR HGB CONC 32 g/dL (33-37); MEAN PLATELET VOLUME 9.2 fl (7.4-10.4); MONO # 0.47 K/mm3 (0.20-0.80); NEU # 4.57 K/mm3 (1.40-6.50); PLATELET COUNT 221 K/mm3 (130-400); RED BLOOD COUNT 4.61 M/mm3 (4.20-5.60); WHITE BLOOD COUNT 6.7 K/mm3 (4.8-10.8)
[2024-04-25 05:15] LABS: D-DIMER 0.45 mg/L FEU (0.15-0.50); PROTHROMBIN TIME 18.3 SECONDS (9.0-12.0)
== END 2024-03-20 23:08 | disposition home or self-care (01) ==
LOC: ED 20:43
PROVIDERS: Nurse Practitioner
DX: L03.116 Cellulitis of left lower limb (principal); Z79.01 Long term (current) use of anticoagulants
CPT/HCPCS: J2405

== ENCOUNTER → 2024-03-21 | Emergency (ER) | payer MEDICARE, OTHER ==
[~2024-03-21] MED LIST changes: -Amoxicillin 250 MG CAP PO ONE; +FARXIGA10 MG PO; +FLUCONAZOLE150 MG PO; +LEVOTHYROXINE0.05 MG PO; +NURTEC ODT75 MG PO; -Ondansetron 4 MG/2 ML VIAL IV ONE; +SERTRALINE50 MG PO; +SUMATRIPTAN SU100 MG PO; +VITAMIN D325 MC2 PO; +ZESTRIL5 M1 PO
== END ==
LOC: ED 14:04

== ENCOUNTER 2024-05-21 19:54 | Emergency (ER) | payer MEDICARE, OTHER ==
[~2024-05-21] VITALS: Ht 162.6 cm; Wt 82.5 kg
[~2024-05-21 19:54] MED LIST changes: -FARXIGA10 MG PO; -FLUCONAZOLE150 MG PO; -LEVOTHYROXINE0.05 MG PO; -NURTEC ODT75 MG PO; -SERTRALINE50 MG PO; -SUMATRIPTAN SU100 MG PO; -VITAMIN D325 MC2 PO; -ZESTRIL5 M1 PO
[2024-05-21] MEDS ORDERED: NS 1,000 ML IV ONE (20:45)
[2024-05-21] MEDS ORDERED: cefTRIAXone 1 G in Water For Injection,Sterile 10 ML IV ONE (21:00)
[2024-05-21] MEDS ORDERED: HYDROcodone/Acetaminophen 10-325 MG TAB PO ONE (21:00)
[2024-05-21] MEDS ORDERED: FARXIGA10 MG PO (21:02)
[2024-05-21] MEDS ORDERED: FLUCONAZOLE150 MG PO (21:02)
[2024-05-21] MEDS ORDERED: ZESTRIL5 M1 PO (21:03)
[2024-05-21] MEDS ORDERED: LEVOTHYROXINE0.05 MG PO (21:03)
[2024-05-21] MEDS ORDERED: SERTRALINE50 MG PO (21:04)
[2024-05-21] MEDS ORDERED: NURTEC ODT75 MG PO (21:04)
[2024-05-21] MEDS ORDERED: SUMATRIPTAN SU100 MG PO (21:04)
[2024-05-21] MEDS ORDERED: VITAMIN D325 MC2 PO (21:05)
[2024-05-21 21:10] LABS: BASO # 0.02 K/mm3 (0.02-0.10); EOS # 0.28 K/mm3 (0.04-0.40); EOS % 4.3 % (0.0-4.0); HEMATOCRIT 43.4 % (42.0-52.0); HEMOGLOBIN 13.6 g/dL (13.5-18.0); LYMPH# 0.89 K/mm3 (1.50-4.00); MEAN CELL VOLUME 93 fl (78-100); MEAN CORPUSCULAR HEMOGLOBIN 29 pg (27-31); MEAN CORPUSCULAR HGB CONC 31 g/dL (33-37); MEAN PLATELET VOLUME 9.4 fl (7.4-10.4); MONO # 0.54 K/mm3 (0.20-0.80); PLATELET COUNT 182 K/mm3 (130-400); RED BLOOD COUNT 4.68 M/mm3 (4.20-5.60); RED CELL DISTRIBUTION WIDTH 14.1 % (11.5-14.5); WHITE BLOOD COUNT 6.5 K/mm3 (4.8-10.8)
[2024-05-21 21:18] LABS: ALBUMIN 4.3 g/dL (3.5-5.0)
[2024-05-21 21:26] LABS: TOTAL PROTEIN 7.4 g/dL (6.4-8.3)
[2024-05-21 21:27] LABS: TOTAL BILIRUBIN 0.5 mg/dL (0.2-1.2)
[2024-05-21] MEDS ORDERED: EPINEPHrine 1 MG/10 ML (1:10,000) SYRINGE IV ONE (21:39)
[2024-05-21] MEDS ORDERED: Sodium Bicarbonate 8.4% 50 MEQ/50 ML SYRINGE IV ONE (21:39)
[2024-05-21 22:05] LABS: ALBUMIN 3.9 g/dL (3.5-5.0)
[2024-05-21 22:08] LABS: MEAN CELL VOLUME 91 fl (78-100); MEAN CORPUSCULAR HEMOGLOBIN 29 pg (27-31); MEAN CORPUSCULAR HGB CONC 32 g/dL (33-37); MEAN PLATELET VOLUME 9.7 fl (7.4-10.4); RED BLOOD COUNT 6.47 M/mm3 (4.20-5.60); RED CELL DISTRIBUTION WIDTH 14.4 % (11.5-14.5); TOTAL PROTEIN 6.7 g/dL (6.4-8.3); WHITE BLOOD COUNT 9.5 K/mm3 (4.8-10.8)
[2024-05-21 22:09] LABS: HEMOGLOBIN 18.7 g/dL (13.5-18.0); PLATELET COUNT 283 K/mm3 (130-400)
[2024-05-21 22:10] LABS: TOTAL BILIRUBIN 0.4 mg/dL (0.2-1.2)
[2024-05-21] MEDS ORDERED: Rocuronium 50 MG/5 ML Multi-Dose VIAL IV ONE ×3 (22:15→23:08)
[2024-05-21] MEDS ORDERED: fentaNYL 100 MCG/2 ML VIAL IV ONE ×2 (22:15)
[2024-05-21 22:42] LABS: D-DIMER 6.17 mg/L FEU (0.15-0.50)
[2024-05-21] MEDS ORDERED: MIDAZOLAM IV ONE (22:45)
[2024-05-21] MEDS ORDERED: NS IV ONE (22:45)
[2024-05-21 22:52] LABS: BAND 1 % (0-10); LYMPHOCYTE 75 % (20-51); MONOCYTE 6 % (3-10); NEUTROPHILS 17 % (42-75)
[2024-05-21 22:53] LABS: URINE APPEARANCE CLEAR (CLEAR); URINE COLOR YELLOW (YELLOW)
[2024-05-21 22:54] LABS: PH-URINE 7.5 (5.0 - 8.0); URINE BILIRUBIN NEGATIVE (NEGATIVE); URINE BLOOD NEGATIVE (NEGATIVE); URINE GLUCOSE 2+ (NEGATIVE); URINE KETONE NEGATIVE (NEGATIVE); URINE LEUKOCYTE ESTERASE NEGATIVE (NEGATIVE); URINE NITRATE NEGATIVE (NEGATIVE); URINE PROTEIN(semi-quant) NEGATIVE (NEGATIVE)
[2024-05-21 22:56] LABS: URINE WBC 0-1 /hpf (0-3)
[2024-05-21] MEDS ORDERED: AMIODARONE IV ONE (23:08)
[2024-05-22 00:20] VITALS: BP 119/102
== END 2024-05-22 00:20 | disposition short-term general hospital (02) ==
LOC: ED 19:54
PROVIDERS: Family Medicine
DX: N49.2 Inflammatory disorders of scrotum (principal)
CPT/HCPCS: J0171; J0282; J0696; J3010; J7030; J7040; J7060

== ENCOUNTER → 2024-12-03 | Outpatient (CLI) | payer MEDICARE, OTHER ==
[~2024-12-03] MED LIST changes: +FARXIGA10 MG PO; +FLUCONAZOLE150 MG PO; +LEVOTHYROXINE0.05 MG PO; +NURTEC ODT75 MG PO; +SERTRALINE50 MG PO; +SUMATRIPTAN SU100 MG PO; +VITAMIN D325 MC2 PO; +ZESTRIL5 M1 PO
[2024-12-03 14:27] LABS: BASO # 0.01 K/mm3 (0.02-0.10); EOS # 0.26 K/mm3 (0.04-0.40); EOS % 5.8 % (0.0-4.0); HEMATOCRIT 35.4 % (42.0-52.0); HEMOGLOBIN 11.3 g/dL (13.5-18.0); LYMPH# 1.01 K/mm3 (1.50-4.00); MEAN CELL VOLUME 94 fl (78-100); MEAN CORPUSCULAR HEMOGLOBIN 30 pg (27-31); MEAN CORPUSCULAR HGB CONC 32 g/dL (33-37); MEAN PLATELET VOLUME 9.5 fl (7.4-10.4); NEU # 2.92 K/mm3 (1.40-6.50); PLATELET COUNT 163 K/mm3 (130-400); RED BLOOD COUNT 3.75 M/mm3 (4.20-5.60); RED CELL DISTRIBUTION WIDTH 14.2 % (11.5-14.5); WHITE BLOOD COUNT 4.5 K/mm3 (4.8-10.8)
[2024-12-03 14:32] LABS: ALBUMIN 4.2 g/dL (3.5-5.0)
[2024-12-03 14:34] LABS: CALCIUM 9.4 mg/dL (8.3-10.5)
[2024-12-03 14:35] LABS: TOTAL PROTEIN 7.1 g/dL (6.4-8.3)
[2024-12-03 14:37] LABS: TOTAL BILIRUBIN 0.5 mg/dL (0.2-1.2)
[2024-12-03 14:57] LABS: URINE APPEARANCE CLEAR (CLEAR); URINE BILIRUBIN NEGATIVE (NEGATIVE); URINE BLOOD NEGATIVE (NEGATIVE); URINE COLOR YELLOW (YELLOW); URINE GLUCOSE NEGATIVE (NEGATIVE); URINE KETONE NEGATIVE (NEGATIVE); URINE LEUKOCYTE ESTERASE NEGATIVE (NEGATIVE); URINE NITRATE NEGATIVE (NEGATIVE); URINE PROTEIN(semi-quant) NEGATIVE (NEGATIVE); URINE WBC 0-1 /hpf (0-3)
[2024-12-03 23:33] LABS: CREATININE OTHER SOURCE 94 mg/dL (47-110)
== END ==
LOC: LAB 13:56
PROVIDERS: Internal Medicine Nephrology
DX: I12.9 Hypertensive chronic kidney disease with stage 1 through stage 4 chronic kidney disease, or unspecified chronic kidney disease (principal); N18.32 Chronic kidney disease, stage 3b